=== PATIENT | female | born 1985 | race Caucasian/White ===

== ENCOUNTER → 2016-06-30 | Outpatient (CLI) | payer MEDICAID ==
[~2016-06-30] MED LIST: ALPR1T PO; ALPR1TAB2 PO; AMOX500C2 PO; ARIP2TAB10 PO; BENZ100C8 PO; CELEXA; CITA40TA19 PO; CLOMID; DIAZ-345 PO; DIAZ5TAB3 PO; FLUO20CA42; HYDR-2890 PO; HYDR-3720 PO; IBP800T PO; LORA-794 PO; NAPR-243 PO; NAPR550T PO; NF-AMPE5T PO; OLN2.5T PO; PRD20T PO; PREN-142 PO; SERT25TA PO
--- NOTE | 2016-06-30 14:41 | Diagnostic Imaging Report ---
EXAMINATION: OB ultrasound. INDICATION: Followup survey. The previous study on 05/28/2016 was limited in evaluation of the spine and cord insertion. FINDINGS: The heart rate is 142 BPM. The placenta is anterior with no placenta previa. The spine and cord insertion were evaluated and appear within normal limits. The growth parameters at this time are all around 23 weeks and 2 days and concordant with the gestational age. IMPRESSION: Completed survey. Dictated by: Dictated on workstation # [id number]
== END ==
LOC: RAD 09:41
PROVIDERS: ATTEND Family Medicine
DX: Z34.92 Encounter for supervision of normal pregnancy, unspecified, second trimester (principal); Z36 Encounter for antenatal screening of mother; Z3A.23 23 weeks gestation of pregnancy
CPT/HCPCS: 76816

== ENCOUNTER 2016-10-18 19:00 | Inpatient (IN) | payer MEDICAID ==
[~2016-10-18] VITALS: Ht 152.4 cm; Wt 69.9 kg
[~2016-10-18 19:00] MED LIST changes: -PREN-142 PO
--- NOTE | 2016-10-18 19:26 | History & Physical-OB ---
OB - Chief Complaint & HPI Date Date of Admission: Date of Admission: October 18, 2016 at 19:00 Chief Complaint/History OB-Reason for Admission/Chief: Induction of Labor Hx : 1 Hx Para: 0 Expected Date of Delivery: October 24, 2016 Gestational Age in Weeks: 39 Admission Nurse Assessment Rev: Yes History of Labs GBS negative Allergies and Home Medications Allergies Coded Allergies: No Known Drug Allergies (Unverified , 06/05/09) Home Medications Amphetamine Aspartate/Sulfate 5 Mg Tab, Unknown Dose PO, (Reported) Diazepam 5 Mg Tablet, Unknown Dose PO BID PRN for ANXIETY, (Reported) Diazepam 5 Mg Tablet, 1 EACH PO TID PRN, #15 FOR MUSCLE SPASMS OR ANXIETY Prescribed by: KEVIN FRISA on 11/24/14 0118 OB - History Hx of Present Care: Yes Ultrasounds: Normal mid trimester US Obstetrical Complications: None Medical Complications: None Delivery History Hx Blood Disorders: No Adverse Rxn to Tranfusion: No Patient Past Medical History no chronic medical problems Social History/Family History HIV/AIDS: No Sexually Transmitted Disease: No Immunizations Hepatitis A: Yes Hepatitis B: Yes Tetanus Booster (TDap): Less than 5yrs Date of Influenza Vaccine: Mar 20, 2014 OB - Admission Exam Physical Exam HEENT: Moist Membranes Heart: Rhythm Normal Lungs: Clear Abdomen: Gravid Cervical Dilatation: 1cm Effacement: 50% Station: -3 Membranes: Intact Heart Rate: 140's Accelerations: Accelerations Present Custodial Variability: Average (6-25) OB - Assessment/Plan/Diagnosis Assessment Assessment: induction of labor (at 39weeks gestation) Plan Induction Method: other (cervidil) MANOLO BANDA MD October 18, 2016 19:26
[2016-10-18 19:27] VITALS: BP 117/66
[2016-10-18] MEDS ORDERED: ZOLPIDEM 5 MG (AMBIEN) TAB PO PRN (19:45)
[2016-10-18] MEDS ORDERED: DINOPROSTONE 10 MG (CERVIDIL) INSERT PV ONE (19:45)
[2016-10-18] MEDS: D5 LR IV SOLUTION 1,000 ML IV SCH (20:02)
[2016-10-18 20:03] VITALS: BP 109/68
[2016-10-18 20:25] LABS: BASOPHILS % (AUTO) 0 % (0-10); EOSINOPHILS # (AUTO) 0.2 10^3/uL (0.0-0.3); EOSINOPHILS % (AUTO) 1 % (0-10); LYMPHOCYTES # (AUTO) 2.2 X 10^3 (1.0-4.0); LYMPHOCYTES % (AUTO) 17 % (12-44); MEAN CORPUSCULAR HEMOGLOBIN 31 PG (25-34); MEAN CORPUSCULAR HGB CONC 34 G/DL (32-36); MEAN CORPUSCULAR VOLUME 92 FL (80-99); MEAN PLATELET VOLUME 10.8 FL (7.4-10.4); MONOCYTES # (AUTO) 0.7 X 10^3 (0.0-1.0); MONOCYTES % (AUTO) 5 % (0-12); NEUTROPHILS % (AUTO) 76 % (42-75); PLATELET COUNT 309 10^3/uL (130-400); RED BLOOD COUNT 3.91 10^6/uL (4.35-5.85); RED CELL DISTRIBUTION WIDTH 13.1 % (10.0-14.5); WHITE BLOOD COUNT 13.1 10^3/uL (4.3-11.0)
[2016-10-18 21:06] VITALS: BP 110/59
[2016-10-18] MEDS ORDERED: PREN-142 PO (21:25)
[2016-10-18] MEDS: CATHETER FLUSH 10 ML SYR IV SCH (21:55)
[2016-10-19] VITALS (61 sets, daily range): BP systolic 78–144; BP diastolic 48–90
[2016-10-19] MEDS: D5 LR IV SOLUTION 1,000 ML IV SCH ×2 (03:12→11:16)
[2016-10-19] MEDS: CATHETER FLUSH 10 ML SYR IV SCH (06:30)
--- NOTE | 2016-10-19 07:12 | Progress Note (SOAP) ---
Subjective Subjective/Events-last exam Slept some overnight. Occasional contraction. Objective Exam Vital Signs Date Time Temp Pulse Resp B/P (MAP) Pulse Ox O2 Delivery O2 Flow Rate FiO2 10/19/16 03:10 97.3 74 18 122/63 Room Air 10/18/16 21:06 97.7 82 18 110/59 Room Air 10/18/16 20:03 86 18 109/68 Room Air 10/18/16 19:27 98.0 86 18 117/66 Room Air I & O 10/19/16 07:00 Intake Total 1500 ml Balance 1500 ml Capillary Refill : Other comments Cervix at 06/21, 70% effaced and -2 station. contractions noted on monitor 5- 10 minutes apart Results Lab Laboratory Tests 10/18/16 19:40: White Blood Count 13.1H, Red Blood Count 3.91L, Hemoglobin 12.2, Hematocrit 36, Mean Corpuscular Volume 92, Mean Corpuscular Hemoglobin 31, Mean Corpuscular Hemoglobin Concent 34, Red Cell Distribution Width 13.1, Platelet Count 309, Mean Platelet Volume 10.8H, Neutrophils (%) (Auto) 76H, Lymphocytes (%) (Auto) 17, Monocytes (%) (Auto) 5, Eosinophils (%) (Auto) 1, Basophils (%) (Auto) 0, Neutrophils # (Auto) 10.0H, Lymphocytes # (Auto) 2.2, Monocytes # (Auto) 0.7, Eosinophils # (Auto) 0.2, Basophils # (Auto) 0.0 Assessment/Plan Assessment/Plan Assess & Plan/Chief Complaint 1. IUP at 39w1d -AROM performed at 0655 -planning on epidural. Clinical Quality Measures DVT/VTE Risk/Contraindication: Risk Factor Score Per Nursin RFS Level Per Nursing on Admit: 2=Moderate MANOLO BANDA MD October 19, 2016 07:12
[2016-10-19] MEDS ORDERED: OXYTOCIN/NORMAL SALINE 500 ML IV SCH ×2 (07:13→18:59)
[2016-10-19] MEDS ORDERED: OXYTOCIN/NORMAL SALINE 500 ML IV ONE (07:27)
[2016-10-19] MEDS ORDERED: LACTATED RINGERS 1,000 ML IV ONE ×2 (08:02→09:05)
[2016-10-19] MEDS ORDERED: SUFENTA 0.6MCG/ML BUPIVA 0.125 100 ML ONE (08:02)
[2016-10-19] MEDS ORDERED: BUPIVACAINE 0.25% 30 ML (SENSORCAINE) VIAL ONE (08:44)
[2016-10-19] MEDS ORDERED: BUPIVACAINE 0.25% 30 ML (SENSORCAINE) VIAL INJ ONE (09:15)
[2016-10-19] MEDS ORDERED: EPIDURAL (SUFENTA 0.6MCG/ML BUPIVA 0.125%) 100 ML BAG EPI SCH (09:15)
[2016-10-19] MEDS ORDERED: NALOXONE 0.4 MG/ML 1 ML (NARCAN) VIAL IV PRN (09:15)
[2016-10-19] MEDS ORDERED: ONDANSETRON 4 MG/2 ML (SDV) Z0FRAN IV PRN (09:15)
[2016-10-19] MEDS ORDERED: MEPIVACAINE (CARBOCAINE) 2% 50 ML VIAL ONE (18:18)
--- NOTE | 2016-10-19 18:59 | OB Labor & Delivery Record ---
L&D History Date of Service Date of Service: October 19, 2016 History Expected Date of Delivery: October 25, 2016 Gestational Age in Weeks: 39 Hx : 1 Hx Para: 0 Complications Events: Routine care Operative Indications (Cesarea: N/A-Vaginal Delivery Intrapartal Events: None L&D Stage1 Stage One Onset of Labor - Date: October 19, 2016 Onset of Labor - Time: 07:00 Monitors and Tracing Monitor Mode: Internal Heart Rate: 130 Monitor Accelerations: Uniform Monitor Decelerations: Early Station: +1 Mcfp Variability: Average (6-10) Short Term Variability: Present Presentation: Vertex Vital Signs VS - Last 72 Hours, by Label 10/18/16 10/18/16 10/18/16 10/19/16 19:27 20:03 21:06 03:10 Temp 98.0 97.7 97.3 Pulse 86 86 82 74 Resp 18 18 18 18 B/P (MAP) 117/66 109/68 110/59 122/63 O2 Delivery Room Air Room Air Room Air Room Air 10/19/16 10/19/16 10/19/16 10/19/16 07:30 07:35 07:50 08:05 Temp 97.3 Pulse 73 72 72 76 Resp 18 18 18 18 B/P (MAP) 109/57 101/62 104/60 106/68 O2 Delivery Room Air Room Air Room Air Room Air 10/19/16 10/19/16 10/19/16 10/19/16 08:20 08:35 08:50 08:55 Pulse 73 73 88 87 Resp 18 18 18 18 B/P (MAP) 111/67 111/67 138/59 114/61 Pulse Ox 100 O2 Delivery Room Air Room Air Room Air Room Air 10/19/16 10/19/16 10/19/16 10/19/16 09:00 09:05 09:10 09:20 Pulse 87 73 76 80 Resp 18 18 18 18 B/P (MAP) 115/68 107/71 106/61 104/63 Pulse Ox 100 100 100 99 O2 Delivery Room Air Room Air Room Air Room Air 10/19/16 10/19/16 10/19/16 10/19/16 09:35 09:50 10:05 10:20 Pulse 95 89 89 84 Resp 18 18 18 18 B/P (MAP) 102/71 107/59 107/59 103/57 Pulse Ox 100 99 99 100 O2 Delivery Room Air Room Air Room Air Room Air 10/19/16 10/19/16 10/19/16 10/19/16 10:35 10:50 11:05 11:20 Temp 96.0 Pulse 83 76 76 76 Resp 18 18 18 18 B/P (MAP) 98/53 98/53 98/53 Pulse Ox 100 100 100 100 O2 Delivery Room Air Room Air Room Air Room Air 10/19/16 10/19/16 10/19/16 10/19/16 11:35 11:50 12:05 12:20 Pulse 75 79 77 75 Resp 18 18 18 18 B/P (MAP) 97/55 98/55 98/55 103/55 Pulse Ox 98 100 99 100 O2 Delivery Room Air Room Air Room Air Room Air 10/19/16 10/19/16 10/19/16 10/19/16 12:35 12:50 13:05 13:20 Pulse 75 74 65 79 Resp 18 18 18 18 B/P (MAP) 101/58 97/54 97/54 93/48 Pulse Ox 99 98 98 98 O2 Delivery Room Air Room Air Room Air Room Air 10/19/16 10/19/16 10/19/16 10/19/16 13:35 13:50 14:05 14:20 Temp 97.3 Pulse 84 83 77 83 Resp 18 18 18 18 B/P (MAP) 105/57 105/54 100/58 101/65 Pulse Ox 99 100 99 100 O2 Delivery Room Air Room Air Room Air Room Air 10/19/16 10/19/16 10/19/16 10/19/16 14:35 14:50 15:05 15:20 Pulse 84 73 86 80 Resp 18 18 18 18 B/P (MAP) 144/56 105/55 102/54 106/63 Pulse Ox 100 100 100 100 O2 Delivery Room Air Room Air Room Air Room Air 10/19/16 10/19/16 15:35 15:50 Pulse 86 94 Resp 18 18 B/P (MAP) 105/58 101/62 Pulse Ox 99 100 O2 Delivery Room Air Room Air Signs of Distress by FHT Signs of Distress none Rupture of Membranes Spontaneous Ruture of Membrane: No Amniotic Membrane Rupture Time: 0656 Amniotic Membrane Fluid Desc.: Clear Induction/Anesthesia Epidural Cath Placement - Time: 0854 L&D Stage2 Stage Two Stage II Date: October 19, 2016 Stage II Time: 18:31 Monitors and Tracing Monitor Mode: Internal Heart Rate: 130 Monitor Accelerations: Uniform Monitor Decelerations: None 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 (6-10) Short Term Variability: Present Position: Left Occiput Anterior Presentation: Vertex Signs of Distress by FHT Signs of Distress poor inspiratory effort Cord Descript/Complications Cord Vessel Description: 3 Vessels Delivery Type Delivery Method: Low Vacuum Extraction Anterior Shoulder: Left Episiotomy/Perineal Laceration Laceraction(s)/Extensions: Yes Episiotomy Description: Midline Sutures Used: Vicryl Condition of Delivery 1 minute Comment: 1 5 minute Comment: 4 Notes 8 at 10 min Condition of Condition of Infant: Living Exam: No Observed Abnormalities Resuscitation Resuscitation: Bag and Mask Resuscitation Comments: CPAP required L&D Stage3 Stage Three Stage III Date: October 19, 2016 Stage III Time: 18:37 Pictocin Pitocin Administration mu/min: 20 Pitocin ml/hr: 20 Pitocin Administration Comment: pitocin increased per protocol Placenta Delivery Placenta Delivery: Spontaneous Delivery Summary Summary Vaginal blood loss >500ml: No 400cc Condition of Delivery Examined: Cervix Examined Post Hemorrhage: No MANOLO BANDA MD October 19, 2016 18:59
[2016-10-19] MEDS ORDERED: MEASLES,MUMPS,RUBELLA 1 EA INJ SQ ONE (19:00)
[2016-10-19] MEDS ORDERED: HYDROcodone/APAP 5 MG/325 MG (LORTAB) TAB PO PRN (19:00)
[2016-10-19] MEDS ORDERED: BENZOCAINE/MENTHOL (DERMOPLAST) 56 ML CAN TP PRN (19:00)
[2016-10-19] MEDS ORDERED: TETANUS,DIPTH,PERTUSS P/F (BOOSTRIX) 0.5 ML VIAL IM ONE (19:00)
[2016-10-19] MEDS ORDERED: WITCH HAZEL(TUCKS) 40 EA JAR TOP PRN (19:00)
[2016-10-19] MEDS ORDERED: METHYLERGONOVINE 0.2 MG/ML (METHERGINE) AMP ONE (19:35)
[2016-10-19] MEDS ORDERED: METHYLERGONOVINE 0.2 MG/ML (METHERGINE) AMP IM NR (19:45)
[2016-10-19] MEDS: ACETAMINOPHEN 500 MG TAB (TYLENOL) PO PRN (20:04)
[2016-10-19 20:20] LABS: BASOPHILS % (AUTO) 0 % (0-10); EOSINOPHILS # (AUTO) 0.2 10^3/uL (0.0-0.3); EOSINOPHILS % (AUTO) 2 % (0-10); LYMPHOCYTES # (AUTO) 1.8 X 10^3 (1.0-4.0); LYMPHOCYTES % (AUTO) 13 % (12-44); MEAN CORPUSCULAR HEMOGLOBIN 36 PG (25-34); MEAN CORPUSCULAR HGB CONC 37 G/DL (32-36); MEAN CORPUSCULAR VOLUME 95 FL (80-99); MEAN PLATELET VOLUME 11.3 FL (7.4-10.4); MONOCYTES # (AUTO) 0.8 X 10^3 (0.0-1.0); MONOCYTES % (AUTO) 6 % (0-12); NEUTROPHILS # (AUTO) 11.1 X 10^3 (1.8-7.8); NEUTROPHILS % (AUTO) 80 % (42-75); PLATELET COUNT 94 10^3/uL (130-400); RED BLOOD COUNT 3.89 10^6/uL (4.35-5.85); RED CELL DISTRIBUTION WIDTH 15.7 % (10.0-14.5); WHITE BLOOD COUNT 13.8 10^3/uL (4.3-11.0)
[2016-10-19] MEDS: IBUPROFEN 600 MG (MOTRIN) TAB PO SCH (21:30)
[2016-10-19] MEDS ORDERED: CATHETER FLUSH 10 ML SYR IV SCH (22:00)
[2016-10-20] VITALS (8 sets, daily range): BP systolic 93–107; BP diastolic 53–68
[2016-10-20] MEDS: METHYLERGONOVINE 0.2 MG (MEHTERGINE) TAB PO SCH ×4 (01:32→21:52)
[2016-10-20] MEDS: IBUPROFEN 600 MG (MOTRIN) TAB PO SCH ×4 (04:49→21:52)
[2016-10-20 06:44] LABS: BASOPHILS % (AUTO) 0 % (0-10); EOSINOPHILS # (AUTO) 0.1 10^3/uL (0.0-0.3); EOSINOPHILS % (AUTO) 1 % (0-10); LYMPHOCYTES # (AUTO) 2.1 X 10^3 (1.0-4.0); LYMPHOCYTES % (AUTO) 10 % (12-44); MEAN CORPUSCULAR HEMOGLOBIN 32 PG (25-34); MEAN CORPUSCULAR HGB CONC 35 G/DL (32-36); MEAN CORPUSCULAR VOLUME 91 FL (80-99); MEAN PLATELET VOLUME 10.1 FL (7.4-10.4); MONOCYTES # (AUTO) 1.4 X 10^3 (0.0-1.0); MONOCYTES % (AUTO) 7 % (0-12); NEUTROPHILS # (AUTO) 17.4 X 10^3 (1.8-7.8); NEUTROPHILS % (AUTO) 83 % (42-75); PLATELET COUNT 207 10^3/uL (130-400); RED BLOOD COUNT 3.26 10^6/uL (4.35-5.85); RED CELL DISTRIBUTION WIDTH 12.8 % (10.0-14.5)
--- NOTE | 2016-10-20 07:40 | Progress Note (SOAP) ---
Subjective Subjective/Events-last exam patient feels much better today. There is minimal lightheadedness. She reports no significant vaginal bleeding. Objective Exam Vital Signs Date Time Temp Pulse Resp B/P (MAP) Pulse Ox O2 Delivery O2 Flow Rate FiO2 10/20/16 04:38 96.4 85 16 105/65 100 Room Air 10/20/16 01:32 97.1 97 16 107/57 96 Room Air 10/20/16 00:30 97.3 96 16 101/68 99 Room Air 10/19/16 23:30 98.7 94 16 103/65 98 Room Air 10/19/16 21:30 99.7 102/70 Room Air 10/19/16 20:45 100.5 94 18 105/65 97 Room Air 10/19/16 20:45 100.5 10/19/16 20:30 100.7 107 20 103/62 Room Air 10/19/16 20:16 99 18 102/56 Room Air 10/19/16 20:04 100.9 10/19/16 20:01 100.9 116 20 111/60 Room Air 10/19/16 19:54 99 18 104/51 Room Air 10/19/16 19:46 102.4 102 20 86/54 Room Air 10/19/16 19:33 94 18 78/51 Room Air 10/19/16 19:31 114 18 88/50 Room Air 10/19/16 19:24 109 18 100/50 Room Air 10/19/16 19:16 102.5 139 20 120/55 Room Air 10/19/16 19:05 103.1 10/19/16 19:00 134 116/56 Room Air 10/19/16 18:51 103.1 10/19/16 18:20 146 18 116/67 Room Air 10/19/16 18:05 18 141/90 Room Air 10/19/16 17:50 123 18 122/57 Room Air 10/19/16 17:43 100.1 10/19/16 17:35 118 18 126/71 Room Air 10/19/16 17:20 105 18 122/87 Room Air 10/19/16 17:05 113 18 117/73 99 Room Air 10/19/16 16:50 102 18 110/68 100 Room Air 10/19/16 16:35 92 18 118/58 98 Room Air 5/2/17 16:20 92 18 107/56 100 Room Air 5/2/17 16:05 87 18 115/64 99 Room Air 5/2/17 15:50 94 18 101/62 100 Room Air 5/2/17 15:35 86 18 105/58 99 Room Air 5/2/17 15:20 80 18 106/63 100 Room Air 5/2/17 15:05 86 18 102/54 100 Room Air 5/2/17 14:50 73 18 105/55 100 Room Air 5/2/17 14:35 84 18 144/56 100 Room Air 5/2/17 14:20 83 18 101/65 100 Room Air 5/2/17 14:05 97.3 77 18 100/58 99 Room Air 5/2/17 13:50 83 18 105/54 100 Room Air 5/2/17 13:35 84 18 105/57 99 Room Air 5/2/17 13:20 79 18 93/48 98 Room Air 5/2/17 13:05 65 18 97/54 98 Room Air 5/2/17 12:50 74 18 97/54 98 Room Air 5/2/17 12:35 75 18 101/58 99 Room Air 5/2/17 12:20 75 18 103/55 100 Room Air 5/2/17 12:05 77 18 98/55 99 Room Air 5/2/17 11:50 79 18 98/55 100 Room Air 5/2/17 11:35 75 18 97/55 98 Room Air 5/2/17 11:20 76 18 98/53 100 Room Air 5/2/17 11:05 96.0 76 18 98/53 100 Room Air 5/2/17 10:50 76 18 98/53 100 Room Air 5/2/17 10:35 83 18 100 Room Air 5/2/17 10:20 84 18 103/57 100 Room Air 5/2/17 10:05 89 18 107/59 99 Room Air 5/2/17 09:50 89 18 107/59 99 Room Air 5/2/17 09:35 95 18 102/71 100 Room Air 5/2/17 09:20 80 18 104/63 99 Room Air 5/2/17 09:10 76 18 106/61 100 Room Air 5/2/17 09:05 73 18 107/71 100 Room Air 5/2/17 09:00 87 18 115/68 100 Room Air 10/19/16 08:55 87 18 114/61 Room Air 10/19/16 08:50 88 18 138/59 100 Room Air 10/19/16 08:35 73 18 111/67 Room Air 10/19/16 08:20 73 18 111/67 Room Air 10/19/16 08:05 76 18 106/68 Room Air 10/19/16 07:50 72 18 104/60 Room Air I & O 10/20/16 07:00 Intake Total 2500 ml Balance 2500 ml Capillary Refill : General Appearance: No Apparent Distress Respiratory: Lungs Clear Cardiovascular: Regular Rate, Rhythm Gastrointestinal: soft (with uterus firm) Results Lab Laboratory Tests 10/19/16 19:40: White Blood Count 13.8H, Red Blood Count 3.89L, Hemoglobin 13.8, Hematocrit 37, Mean Corpuscular Volume 95, Mean Corpuscular Hemoglobin 36H, Mean Corpuscular Hemoglobin Concent 37H, Red Cell Distribution Width 15.7H, Platelet Count 94L, Mean Platelet Volume 11.3H, Neutrophils (%) (Auto) 80H, Lymphocytes (%) (Auto) 13, Monocytes (%) (Auto) 6, Eosinophils (%) (Auto) 2, Basophils (%) (Auto) 0, Neutrophils # (Auto) 11.1H, Lymphocytes # (Auto) 1.8, Monocytes # (Auto) 0.8, Eosinophils # (Auto) 0.2, Basophils # (Auto) 0.0 10/20/16 06:36: White Blood Count 21.0H, Red Blood Count 3.26L, Hemoglobin 10.3#L, Hematocrit 30L, Mean Corpuscular Volume 91, Mean Corpuscular Hemoglobin 32, Mean Corpuscular Hemoglobin Concent 35, Red Cell Distribution Width 12.8, Platelet Count 207, Mean Platelet Volume 10.1, Neutrophils (%) (Auto) 83H, Lymphocytes (% ) (Auto) 10L, Monocytes (%) (Auto) 7, Eosinophils (%) (Auto) 1, Basophils (%) ( Auto) 0, Neutrophils # (Auto) 17.4H, Lymphocytes # (Auto) 2.1, Monocytes # (Auto ) 1.4H, Eosinophils # (Auto) 0.1, Basophils # (Auto) 0.0 Assessment/Plan Assessment/Plan Assess & Plan/Chief Complaint 1. Status post spontaneous vaginal delivery with suction assistance at 39 weeks gestation -Continue today with routine care orders. -Dismissal in the morning of October 21, 2016. Clinical Quality Measures DVT/VTE Risk/Contraindication: Risk Factor Score Per Nursin RFS Level Per Nursing on Admit: 2=Moderate MANOLO BANDA MD October 20, 2016 07:40
[2016-10-20] MEDS ORDERED: TETANUS,DIPTH,PERTUSS P/F (BOOSTRIX) 0.5 ML VIAL IM ONE (08:00)
[2016-10-20] MEDS: ACETAMINOPHEN 500 MG TAB (TYLENOL) PO PRN (08:07)
[2016-10-20] MEDS: PRENATAL VITAMIN 1 EA TAB PO SCH (08:07)
[2016-10-20] MEDS: FERROUS SULF 325 MG (IRON) TAB PO SCH (08:08)
--- NOTE | 2016-10-20 14:58 | Anesthesia-Regional Post-Op ---
Regional Patient Condition Mental Status: Alert, Oriented x3 Circulation: Same as Pre-Op Headache: Absent Sensation: Full Recovery Motor Block: Absent Post Op Complications Complications None Follow Up Care/Instructions Patient Instructions None needed. Anesthesia/Patient Condition Patient is doing well, no complaints, stable vital signs, no apparent adverse anesthesia problems. No complications reported per nursing. [place] [facility] No FRANCISCO JAVIER CONTRERAS CRNA October 20, 2016 14:58
[2016-10-20] MEDS ORDERED: METHYLERGONOVINE 0.2 MG (MEHTERGINE) TAB PO ONE (21:42)
[2016-10-21 04:40] VITALS: BP 84/55
[2016-10-21] MEDS: IBUPROFEN 600 MG (MOTRIN) TAB PO SCH ×2 (04:40→10:18)
--- NOTE | 2016-10-21 07:42 | Discharge Summary ---
Diagnosis/Chief Complaint Date of Admission October 18, 2016 at 19:00 Date of Discharge October 21, 2016 Discharge Date: October 21, 2016 Admission Diagnosis Admission Diagnosis 1. Intrauterine at term 39 weeks Discharge Diagnosis 1. Intrauterine at term 39 weeks Reason Hospital Visit 31-year-old 1 now term 1 female who initially presented during the evening of October 18, 2016 for induction of labor. Patient was noted to be at 39 weeks 2 days gestation upon presentation. Patient had occasional contraction but no pattern. care was essentially uneventful. Her GBS status at 36 weeks was negative. Discharge Summary-OBS Procedures 1. Epidural per anesthesia 2. Suction-assisted vertex vaginal delivery 3. Repair of midline episiotomy Discharge Physical Examination Allergies: Coded Allergies: No Known Drug Allergies (Unverified , 06/05/09) Vitals & I&Os Vital Signs Date Time Temp Pulse Resp B/P (MAP) Pulse Ox O2 Delivery O2 Flow Rate FiO2 10/21/16 04:40 96.0 65 16 84/55 97 Room Air General Appearance: No Acute Distress HEENT: EOMI Respiratory: Clear to Auscultation Cardiovascular: Regular Rate Abdominal: Soft (with uterus firm) Hospital Course upon admission on October 18, 2016 patient underwent Cervidil cervical ripening. 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 She ultimately underwent amniotomy with placement of scalp electrode with clear fluid noted. Patient received epidural in labor and also Pitocin augmentation. Once the completion she was allowed to push and ultimately delivered a term viable female with Apgars of 1 at 1 minute for at 5 minutes and 8 at 10 minutes. responded well to CPAP. Mother was noted to have a midline episiotomy which was repaired with 3-0 Vicryl. Estimated blood loss was 400 mL. Her hemoglobin prior to delivery was noted to be 12.2. Following delivery patient had underwent routine care orders. She was noted to have one dizzy spell during the immediate time after delivery. Patient responded well to resting and ultimately this resolved. Her hemoglobin on October 20, 2016 was noted to be 10.3. Patient remained asymptomatic and was noted to have no further problems during the remainder of the hospital stay. She was noted to have no leg pain or chest pain. She had tolerated regular diet. She was felt ready for dismissal in the morning of October 21, 2016. Discharge Instructions to patient/family Please see electonic discharge instructions given to patient. Discharge Medications Reviewed and agree with Discharge Medication list on patient's Discharge Instruction sheet Clinical Quality Measures DVT/VTE Risk/Contraindication: Risk Factor Score Per Nursin RFS Level Per Nursing on Admit: 2=Moderate MANOLO BANDA MD October 21, 2016 07:42
--- NOTE | 2016-10-21 07:44 | Discharge Inst-Women's Service ---
Discharge Inst-Women's Serv Depart Medication/Instructions Instructions May utilize Tylenol or ibuprofen for discomfort. The Tylenol would be extra strength every 4 hours as needed and ibuprofen 600 mg every 6 hours as needed for cramping. Consults/Follow Up Additional Follow Up: Yes (with Dr. Banda in 6 weeks.) Activity Activity: Activity as Tolerated Driving Instructions: You May Drive Nothing Inside Vagina: No [place] (for 6 weeks) Diet Discharge Diet: No Restrictions Return to The Hospital For: as below Symptoms to Report to : Bleeding Excessive, Pain Increased, Fever Over 101 Degrees F, Vaginal Discharge Foul For Any Problems or Questions: Contact Your Physician MANOLO BANDA MD October 21, 2016 07:44
[2016-10-21 08:50] VITALS: BP 94/57
[2016-10-21] MEDS: PRENATAL VITAMIN 1 EA TAB PO SCH (08:51)
[2016-10-21] MEDS: FERROUS SULF 325 MG (IRON) TAB PO SCH (08:51)
[2016-10-21] MEDS ORDERED: TETANUS,DIPTH,PERTUSS P/F (BOOSTRIX) 0.5 ML VIAL IM ONE (09:47)
== END 2016-10-21 10:55 | disposition home or self-care (01) | DRG 775 ==
LOC: LDRP 19:00
PROVIDERS: ADMIT Family Medicine; ATTEND Family Medicine
PROC: 3E0P7GC Introduction of Other Therapeutic Substance into Female Reproductive, Via Natural or Artificial Opening (ICD-10-PCS; 2016-10-18)
PROC: 10D07Z6 Extraction of Products of Conception, Vacuum, Via Natural or Artificial Opening (ICD-10-PCS; principal; 2016-10-19)
PROC: 0W8NXZZ Division of Female Perineum, External Approach (ICD-10-PCS; 2016-10-19)
DX: O77.9 Labor and delivery complicated by fetal stress, unspecified (principal); Z37.0 Single live birth; Z3A.39 39 weeks gestation of pregnancy; Z23 Encounter for immunization
CPT/HCPCS: 36415; 85025; 86850; 86900; 86901; 90715

== ENCOUNTER → 2017-09-21 | Outpatient (CLI) | payer MEDICAID ==
[~2017-09-21] MED LIST changes: +PREN-142 PO
--- NOTE | 2017-09-21 19:25 | Diagnostic Imaging Report ---
PROCEDURE: US PELVIC (NON OB) TECHNIQUE: Multiple real-time grayscale images were obtained over the pelvis in various projections transabdominally. INDICATION: Pelvic pain. FINDINGS: The previous pelvic ultrasound exam performed on 07/10/2014 noted prominent ovarian follicles and a mildly complicated left ovarian cyst measuring 2.5 x 2.5 x 2.8 cm. On this exam, both ovaries were identified. The cyst arising from the left ovary seen previously is no longer visualized. There are a few subcentimeter follicles associated with each ovary. There is good blood flow to each ovary, and there is no sign of torsion. The uterus is nongravid and not enlarged measuring 7.9 x 4.3 x 3.4 cm. There is no focal mass involving the uterus to suggest a fibroid. The endometrial lining is slightly thickened measuring 8 mm (normal 5 mm or less). This finding is nonspecific. Correlation with the patient's menstrual cycle would be recommended. There is no pelvic mass or free fluid collection noted. IMPRESSION: The cyst associated with the left ovary seen previously has resolved. There is no acute pelvic abnormality identified at this time. Dictated by: Dictated on workstation # [id number]
== END ==
LOC: RAD 13:36
PROVIDERS: ATTEND Family Medicine
DX: R10.2 Pelvic and perineal pain (principal)
CPT/HCPCS: 76856

== ENCOUNTER 2018-03-31 13:59 | Emergency (ER) | payer BC, MEDICAID ==
[~2018-03-31] VITALS: Ht 152.4 cm; Wt 51.7 kg
--- NOTE | 2018-03-31 17:20 | Diagnostic Imaging Report ---
EXAMINATION: Obstetrical sonography. INDICATION: Cramping and spotting. FINDINGS: There appears to be a decidual reaction about an apparent gestational sac. No pole is evident. There is a yolk sac present. The gestational sac has a slightly flattened appearance. Based on the mean sac diameter, the estimated gestational age would be 6 weeks 0 days. Left adnexa unremarkable. The right ovary demonstrates an apparent corpus luteal cyst. There is appropriate right ovarian Doppler flow. There is no free fluid within the pelvis IMPRESSION: 1. There is an apparent gestational sac within the endometrial canal. This gestational sac does contain a yolk sac but a pole is not evident. Differential considerations would include missed spontaneous or early intrauterine gestation. Consider ongoing correlation with beta hCGs and repeat sonographic imaging, as clinically indicated. 2. Right ovarian cyst appears simple. The right ovary demonstrates appropriate Doppler flow. 3. The left adnexa is unremarkable but the left ovary was not visualized. 4. No free fluid evident within the pelvis. Dictated by: Dictated on workstation # [id number]
--- NOTE | 2018-03-31 17:33 | ED GU-Female ---
General Chief Complaint: -Female Stated Complaint: AROUND 7 WKS;CRAMPS;SPOTTING Nursing Triage Note: PT TO TRIAGE. A&OX4. REPORTS PT IS 7-8WK PREG. REPORTS ABD CRAMPING WITH SPOTTING NOTED EARLY THIS AM. REPORTS PRESSURE AND THE URGE TO PUSH. DESCRIBES PAIN STABBING. NAUSEA/VOMITING. Nursing Sepsis Screen: No Definite Risk Source: patient Exam Limitations: no limitations History of Present Illness Date Seen by Provider: Mar 31, 2018 Time Seen by Provider: 17:31 Initial Comments To ER with reports of suprapubic abdominal cramping and spotting. estimates herself about 7-8 weeks gestation. No troubles with the first . Timing/Duration: just prior to arrival Severity/Quality: moderate Associated Symptoms: dysuria; No lower back pain, No urinary frequency Allergies and Home Medications Allergies Coded Allergies: No Known Drug Allergies (Unverified , 06/05/09) Home Medications Vit No.124/Iron/FA 1 Each Tablet, 1 EACH PO DAILY, (Reported) Patient Home Medication List Home Medication List Reviewed: Yes Review of Systems Review of Systems Constitutional: see HPI EENTM: see HPI Respiratory: no symptoms reported Cardiovascular: no symptoms reported Genitourinary: see HPI, frequency Musculoskeletal: see HPI Skin: no symptoms reported Psychiatric/Neurological: No Symptoms Reported Endocrine: No Symptoms Reported Hematologic/Lymphatic: No Symptoms Reported (is) Past Iqdzkfd-Zkyorg-Zwcvda Hx Patient Social History Alcohol Use: Denies Use Recreational Drug Use: No Smoking Status: Current Everyday Smoker Type Used: Cigarettes 2nd Hand Smoke Exposure: Yes Recent Foreign Travel: No Contact w/Someone Who Travel: No Recent Infectious Disease Expo: No Recent Hopitalizations: No Immunizations Up To Date Tetanus Booster (TDap): Less than 5yrs Date of Influenza Vaccine: Mar 20, 2014 Seasonal Allergies Seasonal Allergies: No Past Medical History Surgeries: Yes (OVARIAN CYSTS, ENODMETRIOSIS) Abdominal, Orthopedic Respiratory: No Cardiac: Yes Syncope Neurological: No : Yes (7-8WKS) Reproductive Disorders: Yes Female Reproductive Disorders: Endometriosis, Ovarian Cyst Sexually Transmitted Disease: No HIV/AIDS: No Gastrointestinal: No Musculoskeletal: No Endocrine: No HEENT: No Cancer: No Psychosocial: Yes ADD/ADHD, Anxiety, Bipolar, Depression Integumentary: No Blood Disorders: No Adverse Reaction/Blood Tranf: No Family Medical History Patient reports no known family medical history. Cancer Physical Exam Vital Signs Vital Signs - First Documented 03/31/18 15:59 Temp 97.9 Pulse 71 Resp 16 B/P (MAP) 101/58 (72) Pulse Ox 100 O2 Delivery Room Air Capillary Refill : Less Than 3 Seconds Height, Weight, BMI Height: 5'0" Weight: 114lbs. 0.0oz. 51.628235vr; 30.1 BMI Method:Stated General Appearance: WD/WN, no apparent distress HEENT: PERRL/EOMI, normal ENT inspection Neck: non-tender, full range of motion Respiratory: no respiratory distress, no accessory muscle use Gastrointestinal: normal bowel sounds, soft, tenderness Neurologic/Psychiatric: alert, normal mood/affect, oriented x 3 Skin: normal color, warm/dry Progress/Results/Core Measures Suspected Sepsis Recent Fever Within 48 Hours: No Infection Criteria Present: None New/Unexplained Altered Menta: No Sepsis Screen: No Definite Risk SIRS Temperature:97.9 Pulse: 71 Respiratory Rate: 16 Laboratory Tests 03/31/18 17:29: White Blood Count 7.9 Blood Pressure 101 /58 Mean: 72 Laboratory Tests 03/31/18 17:29: Platelet Count 300 Results/Orders Lab Results Laboratory Tests Test 03/31/18 17:29 Range/Units White Blood Count 7.9 4.3-11.0 10^3/uL Red Blood Count 3.93 L 4.35-5.85 10^6/uL Hemoglobin 12.6 11.5-16.0 G/DL Hematocrit 37 35-52 % Mean Corpuscular Volume 93 80-99 FL Mean Corpuscular Hemoglobin 32 25-34 PG Mean Corpuscular Hemoglobin Concent 34 32-36 G/DL Red Cell Distribution Width 12.1 10.0-14.5 % Platelet Count 300 130-400 10^3/uL Mean Platelet Volume 10.2 7.4-10.4 FL Neutrophils (%) (Auto) 53 42-75 % Lymphocytes (%) (Auto) 35 12-44 % Monocytes (%) (Auto) 6 0-12 % Eosinophils (%) (Auto) 5 0-10 % Basophils (%) (Auto) 0 0-10 % Neutrophils # (Auto) 4.2 1.8-7.8 X 10^3 Lymphocytes # (Auto) 2.8 1.0-4.0 X 10^3 Monocytes # (Auto) 0.5 0.0-1.0 X 10^3 Eosinophils # (Auto) 0.4 H 0.0-0.3 10^3/uL Basophils # (Auto) 0.0 0.0-0.1 10^3/uL My Orders Orders - JOSE VICTORIA APRN Us Ob<14 Wks Sngle W/Transvag (03/31/18 16:26) Cbc With Automated Diff (03/31/18 17:06) Abo Rh Type (03/31/18 17:06) Ua Culture If Indicated (03/31/18 17:43) Vital Signs/I&O 03/31/18 15:59 Temp 97.9 Pulse 71 Resp 16 B/P (MAP) 101/58 (72) Pulse Ox 100 O2 Delivery Room Air Capillary Refill : Less Than 3 Seconds Blood Pressure Mean: 72 Diagnostic Imaging Diagonstic Imaging: Ultrasound Comments NAME: ROSEMARY PABON [facility] REC#: [id number] PT STATUS: REG ER : 1985 PHYSICIAN: JOSE VICTORIA APRN ADMIT DATE: 03/31/18/ER Draft Date of Exam:03/31/18 US OB<14 WKS SNGLE W/TRANSVAG EXAMINATION: Obstetrical sonography. INDICATION: Cramping and spotting. FINDINGS: There appears to be a decidual reaction about an apparent gestational sac. No pole is evident. There is a yolk sac present. The gestational sac has a slightly flattened appearance. Based on the mean sac diameter, the estimated gestational age would be 6 weeks 0 days. Left adnexa unremarkable. The right ovary demonstrates an apparent corpus luteal cyst. There is appropriate right ovarian Doppler flow. There is no free fluid within the pelvis IMPRESSION: 1. There is an apparent gestational sac within the endometrial canal. This gestational sac does contain a yolk sac but a pole is not evident. Differential considerations would include missed spontaneous or early intrauterine gestation. Consider ongoing correlation with beta hCGs and repeat sonographic imaging, as clinically indicated. 2. Right ovarian cyst appears simple. The right ovary demonstrates appropriate Doppler flow. 3. The left adnexa is unremarkable but the left ovary was not visualized. 4. No free fluid evident within the pelvis. Dictated on workstation # [id number] Dict: 03/31/18 1713 Trans: 03/31/18 1720 [facility] [id number] Interpreted by: NORBERTO THAKUR MD Electronically signed by: Departure Impression Primary Impression: Threatened in early Disposition: HOME, SELF-CARE Condition: Stable Departure-Patient Inst. Decision time for Depature: 17:33 Referrals: MANOLO BANDA MD (PCP/Family) Primary Care Physician Patient Instructions: Threatened Miscarriage Add. Discharge Instructions: 1. Return to ER for any concerns 2. Follow up wit hour regular doctor next week All discharge instructions reviewed with patient and/or family. Voiced understanding. JOSE VICTORIA [employer] WORK[employer] Mar 31, 2018 17:33
[2018-03-31 17:43] LABS: BASOPHILS % (AUTO) 0 % (0-10); EOSINOPHILS # (AUTO) 0.4 10^3/uL (0.0-0.3); EOSINOPHILS % (AUTO) 5 % (0-10); HEMATOCRIT 37 % (35-52); HEMOGLOBIN 12.6 G/DL (11.5-16.0); LYMPHOCYTES # (AUTO) 2.8 X 10^3 (1.0-4.0); LYMPHOCYTES % (AUTO) 35 % (12-44); MEAN CORPUSCULAR HEMOGLOBIN 32 PG (25-34); MEAN CORPUSCULAR HGB CONC 34 G/DL (32-36); MEAN CORPUSCULAR VOLUME 93 FL (80-99); MEAN PLATELET VOLUME 10.2 FL (7.4-10.4); MONOCYTES # (AUTO) 0.5 X 10^3 (0.0-1.0); MONOCYTES % (AUTO) 6 % (0-12); NEUTROPHILS # (AUTO) 4.2 X 10^3 (1.8-7.8); NEUTROPHILS % (AUTO) 53 % (42-75); PLATELET COUNT 300 10^3/uL (130-400); RED BLOOD COUNT 3.93 10^6/uL (4.35-5.85); RED CELL DISTRIBUTION WIDTH 12.1 % (10.0-14.5); WHITE BLOOD COUNT 7.9 10^3/uL (4.3-11.0)
[2018-03-31 17:58] LABS: BILIRUBIN,URINE NEGATIVE (NEGATIVE); CLARITY,URINE CLEAR; COLOR,URINE YELLOW; GLUCOSE, URINE (UA) NEGATIVE (NEGATIVE); KETONES,URINE NEGATIVE (NEGATIVE); LEUKOCYTE ESTERASE ,URINE NEGATIVE (NEGATIVE); NITRITE,URINE NEGATIVE (NEGATIVE); PH,URINE 8 (5-9); PROTEIN,URINE NEGATIVE (NEGATIVE); UROBILINOGEN,URINE NORMAL (NORMAL)
[2018-03-31 18:04] LABS: BACTERIA,URINE TRACE /HPF; SQUAMOUS EPITHELIAL CELL,UR 0-2 /HPF
[2018-03-31 18:13] LABS: AMPHETAMINE SCREEN, URINE NEGATIVE (NEGATIVE); BARBITURATE SCREEN URINE NEGATIVE (NEGATIVE); BENZODIAZEPINES SCREEN URINE POSITIVE (NEGATIVE); CANNABINOID SCREEN, URINE NEGATIVE (NEGATIVE); COCAINE SCREEN URINE NEGATIVE (NEGATIVE); METHADONE STAT NEGATIVE (NEGATIVE); METHAMPHETAMINE SCREEN URINE S NEGATIVE (NEGATIVE); OPIATE SCREEN URINE NEGATIVE (NEGATIVE); OXYCODONE STAT NEGATIVE (NEGATIVE); PROPOXYPHENE STAT NEGATIVE (NEGATIVE); TRICYCLIC ANTIDEPRESSANTS SCRE NEGATIVE (NEGATIVE)
[2018-03-31 18:40] VITALS: BP 101/58
== END 2018-03-31 18:40 | disposition home or self-care (01) ==
LOC: EDUNIT# 13:59 → ER 14:00
DX: O20.0 Threatened abortion (principal); O99.341 Other mental disorders complicating pregnancy, first trimester; F90.9 Attention-deficit hyperactivity disorder, unspecified type; F41.9 Anxiety disorder, unspecified; F31.9 Bipolar disorder, unspecified; O99.331 Smoking (tobacco) complicating pregnancy, first trimester; F17.210 Nicotine dependence, cigarettes, uncomplicated; Z87.448 Personal history of other diseases of urinary system; Z3A.01 Less than 8 weeks gestation of pregnancy
CPT/HCPCS: 36415; 76801; 76817; 80306; 81000; 85025

== ENCOUNTER → 2018-04-06 | Outpatient (CLI) | payer BC, MEDICAID ==
--- NOTE | 2018-04-06 17:16 | Diagnostic Imaging Report ---
PROCEDURE: US OB SINGLE FETUS <14 WKS. TECHNIQUE: Multiple real-time grayscale images were obtained over the gravid uterus in various projections. INDICATION: Evaluation of dates. COMPARISON: Comparison is made to study of 03/31/2018. FINDINGS: Intrauterine gestational sac is present. pole is identified with crown-rump length of 0.7 cm. Embryonic cardiac activity is present with rate of 167 beats per minute. No significant perigestational hematoma is identified. Maternal adnexal regions are unremarkable. IMPRESSION: Normal progression of . Intrauterine gestation indicates gestational age of 6 weeks and 5 days with sonographic EDC of 11/25/2018. Dictated by: Dictated on workstation # [id number]
== END ==
LOC: RAD 14:51
PROVIDERS: ATTEND Family Medicine
DX: Z34.91 Encounter for supervision of normal pregnancy, unspecified, first trimester (principal); Z3A.01 Less than 8 weeks gestation of pregnancy
CPT/HCPCS: 76801

== ENCOUNTER 2018-04-15 02:30 | Emergency (ER) | payer BC, MEDICAID ==
[~2018-04-15] VITALS: Ht 152.4 cm; Wt 54.4 kg
[2018-04-15] MEDS ORDERED: BUSP10TA95 (02:54)
[2018-04-15] MEDS ORDERED: SERT100T8 (02:54)
--- NOTE | 2018-04-15 03:11 | ED GU-Female ---
General Chief Complaint: -Female Stated Complaint: 8WKS PREG, VAG BLEEDING,CRAMPING Nursing Triage Note: lower back pain, cramping, vag bleeding Nursing Sepsis Screen: No Definite Risk Source: patient History of Present Illness Date Seen by Provider: Apr 15, 2018 Time Seen by Provider: 02:49 Initial Comments PT ARRIVES VIA POV PT STATES SHE IS 8 WEEKS AND BEGAN SPOTTING AROUND 2330 TONIGHT STATES SHE WAS JUST LAYING IN BED, AND STATES NO INTERCOURSE FOR A COUPLE OF DAYS. STATES SHE HAS NOT USED ANY PADS, ONLY A SPOT OF BRIGHT RED BLOOD ON TISSUE WITH WIPING, AND NOW IS JUST A LIGHT PINK-ORANGE COLOR. HAS HAD SOME SLIGHT LOWER ABDOMINAL AND LOWER BACK CRAMPING PT STATES SHE SAW DR. BANDA TODAY FOR ROUTINE OB VISIT AND STATES THAT HE WAS NOT ABLE TO HEAR THE HEART BEAT. WAS NOT HAVING ANY BLEEDING AT THAT TIME HAD ULTRASOUND DONE LAST WEEK AND EVERY THING WAS NORMAL, PER PT PT STATES SHE DID THE SAME THING WITH HER OTHER AND EVERYTHING WAS FINE DELIVERED 10/2016 PT WAS SEEN IN ER 03/31 FOR THIS EXACT SAME PROBLEM--ULTRASOUND AT THAT TIME SHOWED A GESTATIONAL SAC IN ENDOMETRIUM, WITH NO POLE. PT STATES HER BLOOD TYPE IS O+ CURRENTLY WE DO NOT HAVE ANY ULTRASOUND CAPABILITIES AT NIGHT. OFFERED TO TRANSFER PT TO FACILITY IN [place] FOR FURTHER EVALUATION. PT STATES SHE WILL JUST GO HOME, OR IF HER SYMPTOMS WORSEN SHE WILL JUST DRIVE TO [place] STATES SHE "JUST FREAKED OUT" PT DECLINES ANY TESTS OR FURTHER EVALUATION HERE DANY ADVISED HER THAT DR. SLATER IS GEAR SHAVER SET UP OPERATOR THIS WEEKEND, AND IF HER SYMPTOMS PERSIST , SHE CAN CALL HIM, AND IF THEY WORSEN SHE SHOULD RETURN TO ER, WE WILL HAVE ULTRASOUND CAPABILITIES DURING THE DAY TOMORROW. PT IS VERY AGREEABLE TO THIS PLAN. Allergies and Home Medications Allergies Coded Allergies: No Known Drug Allergies (Unverified , 06/05/09) Home Medications Vit No.124/Iron/FA 1 Each Tablet, 1 EACH PO DAILY, (Reported) Patient Home Medication List Home Medication List Reviewed: Yes Review of Systems Review of Systems Constitutional: other Genitourinary: see HPI : Yes Past Cnwmguu-Lhgcqm-Lkiprn Hx Patient Social History Alcohol Use: Past History (HISTORY OF HEAVY, ALMOST DAILY USE) Recreational Drug Use: Yes (THC, METH, PILLS ( MOSTLY BENZO'S) AND "EXPERIMENTED" WITH MULTIPLE OTHER DRUGS) Drug of Choice: METH, THC, RX PILLS ( BENZO'S), "EXPERIMENTED" WITH MULTIPLE OTHER DRUGS Smoking Status: Former Smoker (1 PPD) Type Used: Cigarettes 2nd Hand Smoke Exposure: Yes Recent Foreign Travel: No Contact w/Someone Who Travel: No Recent Infectious Disease Expo: No Recent Hopitalizations: No Immunizations Up To Date Tetanus Booster (TDap): Unknown Date of Influenza Vaccine: Mar 20, 2014 Seasonal Allergies Seasonal Allergies: No Past Medical History Surgeries: Yes (LAPAROSCOPY FOR OVARIAN CYSTS, ENODMETRIOSIS; RIGHT KNEE SCOPE) Abdominal, Orthopedic Respiratory: No Cardiac: Yes Syncope Neurological: No : Yes Last Menstrual Period: Feb 18, 2018 Hx : 2 Hx Para: 1 Hx Total # of Abortions (Sp): 0 Reproductive Disorders: Yes Female Reproductive Disorders: Endometriosis, Ovarian Cyst Sexually Transmitted Disease: No HIV/AIDS: No Genitourinary: No Gastrointestinal: No Musculoskeletal: No Endocrine: No HEENT: No Cancer: No Psychosocial: Yes (SUICIDE ATTEMPTS/IDEATIONS/OVERDOSED; PSYCH ADMITS; "PARANOIA" ; POLYSUBSTANCE ABUSE) ADD/ADHD, Anxiety, Suicide Attempts, Bipolar, Depression Integumentary: No Blood Disorders: No Adverse Reaction/Blood Tranf: No Family Medical History Patient reports no known family medical history. Cancer Physical Exam Vital Signs Vital Signs - First Documented 04/15/18 02:45 Temp 97.7 Pulse 95 Resp 18 B/P (MAP) 122/70 (87) Pulse Ox 100 O2 Delivery Room Air Capillary Refill : Less Than 3 Seconds Height, Weight, BMI Height: 5'0" Weight: 120lbs. 0.0oz. 54.015323fl; 30.1 BMI Method:Stated General Appearance: no apparent distress, thin Neurologic/Psychiatric: alert, normal mood/affect Skin: normal color Progress/Results/Core Measures Suspected Sepsis Recent Fever Within 48 Hours: No Infection Criteria Present: None New/Unexplained Altered Menta: No Sepsis Screen: No Definite Risk SIRS Temperature:97.7 Pulse: 95 Respiratory Rate: 18 Blood Pressure 122 /70 Mean: 87 Results/Orders Vital Signs/I&O 04/15/18 02:45 Temp 97.7 Pulse 95 Resp 18 B/P (MAP) 122/70 (87) Pulse Ox 100 O2 Delivery Room Air Capillary Refill : Less Than 3 Seconds Blood Pressure Mean: 87 Departure Impression Primary Impression: Threatened in early Disposition: 01 HOME, SELF-CARE Condition: Stable Departure-Patient Inst. Referrals: MANOLO BANDA MD (PCP/Family) Primary Care Physician Patient Instructions: Bleeding With (DC), Threatened Miscarriage (DC) Add. Discharge Instructions: KEEP AN ACCURATE PAD COUNT--RETURN TO ER IF SOAKING MORE THAN 1 MAXI PAD AN HOUR TYLENOL NEEDED FOR PAIN LOTS OF FLUIDS NOTHING IN VAGINA--NO TAMPONS, DOUCHING OR INTERCOURSE FOLLOW UP WITH DR. BANDA IS SYMPTOMS PERSIST All discharge instructions reviewed with patient and/or family. Voiced understanding. KATIE MCFARLANE DO Apr 15, 2018 03:11
[2018-04-15 03:13] VITALS: BP 122/70
== END 2018-04-15 03:12 | disposition home or self-care (01) ==
LOC: EDUNIT# 02:30 → ER 02:32
DX: O20.0 Threatened abortion (principal); O99.321 Drug use complicating pregnancy, first trimester; F12.10 Cannabis abuse, uncomplicated; F15.10 Other stimulant abuse, uncomplicated; O99.341 Other mental disorders complicating pregnancy, first trimester; F90.9 Attention-deficit hyperactivity disorder, unspecified type; F41.9 Anxiety disorder, unspecified; F31.9 Bipolar disorder, unspecified; Z91.5 Personal history of self-harm; Z87.448 Personal history of other diseases of urinary system; Z87.891 Personal history of nicotine dependence; Z3A.08 8 weeks gestation of pregnancy
CPT/HCPCS: 99282

== ENCOUNTER → 2018-06-19 | Outpatient (CLI) | payer BC, MEDICAID ==
[~2018-06-19] MED LIST changes: +BUSP10TA95; +SERT100T8
--- NOTE | 2018-06-19 11:19 | Diagnostic Imaging Report ---
INDICATION: Uncertain dates. TECHNIQUE: Multiple real-time grayscale images were obtained over the gravid uterus. COMPARISON: 04/06/2018 FINDINGS: The prior exam of 04/06/2018 noted a single live intrauterine approximately 6 weeks 5 days gestation + / - 1/2 week. On this exam, the fetus is again visualized. The fetus is in breech presentation. heart motion was noted and a rate of 167 BPM was recorded. There were no abnormalities identified. The growth parameters are fairly uniform and have progressed as expected since the prior exam. The placenta is anterior and there is no previa. The amniotic fluid volume is within normal limits. The cervix was visualized and measures 3.1 cm in length. IMPRESSION: 1. There is a single live fetus in breech presentation approximately 17 weeks 2 days gestation + / - 1 week. EDC remains 11/25/2018. 2. There were no abnormalities identified. 3. The growth parameters have progressed as expected since the prior exam. Biometrical measurements are as follows: Biparietal 3.74 cm, age 17 weeks 3 days. Head circumference 14.03 cm, age 17 weeks 3 days. Abdominal circumference 11.2 cm, age 17 weeks 1 days. Femur length 2.35 cm, age 17 weeks 1 days. Sonographic estimate age: 17 weeks 2 days. Sonographic estimated date of delivery: 11/25/18. Estimated Weight: 181 gm (+/- 26 gm). LMP percentile: 32%. heart rate: 140 beats per minute. number: 1 of 1. Dictated by: Dictated on workstation # [id number]
== END ==
LOC: RAD 09:43
PROVIDERS: ATTEND Family Medicine
DX: O32.1XX0 Maternal care for breech presentation, not applicable or unspecified (principal); Z3A.17 17 weeks gestation of pregnancy
CPT/HCPCS: 76805

== ENCOUNTER 2018-11-20 05:54 | Inpatient (IN) | payer MEDICAID ==
[~2018-11-20] VITALS: Ht 152.4 cm; Wt 65.8 kg
[2018-11-20] VITALS (27 sets, daily range): BP systolic 89–183; BP diastolic 49–113
[2018-11-20] MEDS ORDERED: D5 LR IV SOLUTION 1,000 ML IV ONE (05:58)
--- NOTE | 2018-11-20 06:00 | NUR ---
ROSEMARY PABON presented to unit via ambulation from home/ED, accompanied by SO, for INDUCTION. ROSEMARY PABON weighed, gowned, voided, and to bed. EFHM and TOCO applied, VS taken. ROSEMARY PABON oriented to bed controls, call light, TV, heat, and A/C controls.
[2018-11-20] MEDS ORDERED: D5 LR IV SOLUTION 1,000 ML IV SCH (06:10)
[2018-11-20] MEDS ORDERED: DIPH25TA65 PO (06:29)
[2018-11-20 06:38] LABS: BASOPHILS % (AUTO) 0 % (0-10); EOSINOPHILS # (AUTO) 0.1 10^3/uL (0.0-0.3); EOSINOPHILS % (AUTO) 1 % (0-10); HEMATOCRIT 38 % (35-52); LYMPHOCYTES # (AUTO) 2.1 X 10^3 (1.0-4.0); LYMPHOCYTES % (AUTO) 23 % (12-44); MEAN CORPUSCULAR HEMOGLOBIN 31 PG (25-34); MEAN CORPUSCULAR HGB CONC 34 G/DL (32-36); MEAN CORPUSCULAR VOLUME 92 FL (80-99); MONOCYTES # (AUTO) 0.6 X 10^3 (0.0-1.0); MONOCYTES % (AUTO) 7 % (0-12); NEUTROPHILS # (AUTO) 6.2 X 10^3 (1.8-7.8); NEUTROPHILS % (AUTO) 69 % (42-75); PLATELET COUNT 226 10^3/uL (130-400); RED CELL DISTRIBUTION WIDTH 13.3 % (10.0-14.5); WHITE BLOOD COUNT 9.1 10^3/uL (4.3-11.0)
--- NOTE | 2018-11-20 07:03 | History & Physical-OB ---
OB - Chief Complaint & HPI Date/Time Date of Admission: Date of Admission: Nov 20, 2018 at 05:54 Date seen by a Provider: Nov 20, 2018 Time Seen by a Provider: 07:10 Chief Complaint/History OB-Reason for Admission/Chief: Induction of Labor Hx : 2 Hx Para: 1 Expected Date of Delivery: Nov 25, 2018 Gestational Age in Weeks: 39 Gestational Age in Days: 2 Admission Nurse Assessment Rev: Yes History of Labs GBS negative Allergies and Home Medications Allergies Coded Allergies: No Known Drug Allergies (Unverified , 06/05/09) Home Medications Diphenhydramine HCl 25 Mg Tablet, 25 MG PO PRN, (Reported) Vit No.124/Iron/FA 1 Each Tablet, 1 EACH PO DAILY, (Reported) Patient Home Medication List Home Medication List Reviewed: Yes OB - History Hx of Present Care: Yes Ultrasounds: Normal mid trimester US Obstetrical Complications: None Medical Complications: None Delivery History Hx Blood Disorders: No Adverse Rxn to Tranfusion: No Patient Past Medical History no chronic medical problems Social History/Family History HIV/AIDS: No Sexually Transmitted Disease: No 2nd Hand Smoke Exposure: Yes Immunizations Hepatitis A: Yes Hepatitis B: Yes Tetanus Booster (TDap): Unknown Date of Influenza Vaccine: Mar 20, 2014 OB - Admission Exam Physical Exam HEENT: Moist Membranes Heart: Rhythm Normal Lungs: Clear Abdomen: Gravid Cervical Dilatation: 2cm Effacement: 50% Station: -3 Membranes: Intact Heart Rate: 130's Accelerations: Accelerations Present Narayan Scoring Tool (Modified) Dilation (cm): 1-2cm (1) Effacement (%): 31-51% (1) Descent/Station: -3 (0) Cervix Consistency: Medium(1) Cervix Position: Middle/Mid-Position (1) Add 1 point for: Each previous vaginal delivery (1) Narayan Score: 5 Labs Laboratory Tests Test 11/20/18 06:15 Range/Units White Blood Count 9.1 4.3-11.0 10^3/uL Red Blood Count 4.16 L 4.35-5.85 10^6/uL Hemoglobin 13.0 11.5-16.0 G/DL Hematocrit 38 35-52 % Mean Corpuscular Volume 92 80-99 FL Mean Corpuscular Hemoglobin 31 25-34 PG Mean Corpuscular Hemoglobin Concent 34 32-36 G/DL Red Cell Distribution Width 13.3 10.0-14.5 % Platelet Count 226 130-400 10^3/uL Mean Platelet Volume 11.0 H 7.4-10.4 FL Neutrophils (%) (Auto) 69 42-75 % Lymphocytes (%) (Auto) 23 12-44 % Monocytes (%) (Auto) 7 0-12 % Eosinophils (%) (Auto) 1 0-10 % Basophils (%) (Auto) 0 0-10 % Neutrophils # (Auto) 6.2 1.8-7.8 X 10^3 Lymphocytes # (Auto) 2.1 1.0-4.0 X 10^3 Monocytes # (Auto) 0.6 0.0-1.0 X 10^3 Eosinophils # (Auto) 0.1 0.0-0.3 10^3/uL Basophils # (Auto) 0.0 0.0-0.1 10^3/uL OB - Assessment/Plan/Diagnosis Assessment Assessment: induction of labor Admission Dx 1. IUP at 39w 2d Admission Status: Inpatient Order (span 2 midnights) Reason for Inpatient Admission: induction of labor Plan Plan: Induction Induction Method: AROM Other Plan -plan on pitocin -epidural desired MANOLO BANDA MD Nov 20, 2018 07:03
[2018-11-20] MEDS ORDERED: OXYTOCIN/NORMAL SALINE 500 ML IV SCH ×2 (07:26→13:54)
[2018-11-20] MEDS ORDERED: SUFENTA 0.6MCG/ML BUPIVA 0.125 100 ML ONE (07:34)
[2018-11-20] MEDS ORDERED: LACTATED RINGERS 1,000 ML IV SCH (08:32)
[2018-11-20] MEDS ORDERED: EPIDURAL (SUFENTA 0.6MCG/ML BUPIVA 0.125%) 100 ML BAG EPI SCH (08:45)
[2018-11-20] MEDS ORDERED: diphenhydrAMINE 50 MG/ML INJ (BENADRYL) IV PRN (08:45)
[2018-11-20] MEDS ORDERED: NALOXONE 0.4 MG/ML 1 ML (NARCAN) VIAL IV PRN ×2 (08:45)
[2018-11-20] MEDS ORDERED: ONDANSETRON 4 MG/2 ML (SDV) Z0FRAN IV PRN (08:45)
[2018-11-20] MEDS ORDERED: METOCLOPRAMIDE INJ 10 MG/2 ML (REGLAN) IV PRN (08:45)
--- NOTE | 2018-11-20 09:00 | NUR ---
Pt states she felt heart beat faster - nauseated. IV fluids increased after epidural and due to symptoms. Pt states she has anxiety and becomes nauseated when anxious. Took medication prior to for anxiety. States her life has changed drastically the last 5 years. States she has a almost 2 year old and new relationship with Jose C Delfino and they have full custody of his 3 children. States in good relationship with stepchildren's mom.
[2018-11-20] MEDS ORDERED: MEPIVACAINE (CARBOCAINE) 2% 50 ML VIAL ONE (13:05)
--- NOTE | 2018-11-20 13:59 | OB Labor & Delivery Record ---
L&D History Date of Service Date of Service: Nov 20, 2018 History Expected Date of Delivery: Nov 25, 2018 Gestational Age in Weeks: 39 Hx : 2 Hx Para: 1 Complications Events: Routine care Operative Indications (Cesarea: N/A-Vaginal Delivery Intrapartal Events: None L&D Stage1 Stage One Onset of Labor - Date: Nov 20, 2018 Onset of Labor - Time: 07:05 Monitors and Tracing Monitor Mode: Internal Heart Rate: 140 Monitor Accelerations: Uniform Monitor Decelerations: Variable Station: -2 Shelter Variability: Average (6-10) Short Term Variability: Present Presentation: Vertex Vital Signs VS - Last 72 Hours, by Label 11/20/18 11/20/18 11/20/18 11/20/18 06:10 08:00 08:15 08:30 Temp 98.6 96.9 99.2 Pulse 84 75 82 101 Resp 18 18 16 B/P (MAP) 102/62 (75) 101/55 (70) 108/58 (75) 102/56 (71) O2 Delivery Room Air Room Air Room Air Room Air 11/20/18 11/20/18 11/20/18 11/20/18 08:45 09:00 09:15 09:30 Pulse 99 92 114 100 Resp 18 18 16 B/P (MAP) 105/54 (71) 92/51 (65) 102/67 (79) 99/58 (72) Pulse Ox 97 100 99 O2 Delivery Room Air 11/20/18 11/20/18 11/20/18 11/20/18 09:45 10:00 10:15 10:30 Temp 98.2 Pulse 102 82 70 75 Resp 16 16 B/P (MAP) 109/73 (85) 96/52 (67) 109/53 (71) Pulse Ox 100 100 100 100 11/20/18 11/20/18 11/20/18 11/20/18 10:45 11:00 11:15 11:30 Pulse 65 75 72 72 Resp 16 16 16 16 B/P (MAP) 112/52 (72) 112/59 (76) 109/53 (71) Pulse Ox 100 94 100 97 11/20/18 11/20/18 11/20/18 11:45 12:00 12:15 Temp 98.9 Pulse 69 72 77 Resp 16 B/P (MAP) 102/59 (73) 106/59 (75) Pulse Ox 100 100 100 Signs of Distress by FHT Signs of Distress no Rupture of Membranes Spontaneous Ruture of Membrane: No Amniotic Membrane Rupture Time: 0705 Amniotic Membrane Fluid Desc.: Clear Vaginal Bleeding Description: None Induction/Anesthesia Epidural Cath Placement - Time: 0816 L&D Stage2 Stage Two Stage II Date: Nov 20, 2018 Stage II Time: 13:19 Monitors and Tracing Monitor Mode: Internal Heart Rate: 140 Monitor Accelerations: Uniform Monitor Decelerations: Variable Stress Engineer Variability: Average (6-10) Short Term Variability: Present Position: Left Occiput Anterior Presentation: Vertex Signs of Distress by FHT Signs of Distress no Cord Descript/Complications Cord Vessel Description: 3 Vessels Delivery Type Delivery Method: Spontaneous Vaginal Anterior Shoulder: Left Episiotomy/Perineal Laceration Laceraction(s)/Extensions: Yes Episiotomy Description: Midline Sutures Used: Vicryl Condition of Infant Delivery 1 minute Comment: 8 5 minute Comment: 9 Condition of Infant Condition of : Living Exam: No Observed Abnormalities Resuscitation Resuscitation: N/A - Spontaneous Resp L&D Stage3 Stage Three Stage III Date: Nov 20, 2018 Stage III Time: 13:23 Pictocin Pitocin Administration mu/min: 16 Pitocin ml/hr: 16 Pitocin Administration Comment: 0853 Pitocin initiated Placenta Delivery Placenta Delivery: Spontaneous Delivery Summary Summary Estimated blood loss (mL): 200 Condition of Delivery Examined: Cervix Examined Post Hemorrhage: No Intervention Required none MANOLO BANDA MD Nov 20, 2018 13:59
[2018-11-20] MEDS ORDERED: BENZOCAINE/MENTHOL (DERMOPLAST) 56 ML CAN TP PRN (14:00)
[2018-11-20] MEDS ORDERED: CATHETER FLUSH 10 ML SYR IV SCH ×2 (14:00)
[2018-11-20] MEDS ORDERED: TETANUS,DIPTH,PERTUSS P/F (BOOSTRIX) 0.5 ML VIAL IM ONE (14:00)
[2018-11-20] MEDS ORDERED: WITCH HAZEL(TUCKS) 40 EA JAR TOP PRN (14:00)
[2018-11-20] MEDS ORDERED: MEASLES,MUMPS,RUBELLA 1 EA INJ SQ ONE (14:00)
[2018-11-20] MEDS ORDERED: diphenhydrAMINE 25 MG TAB (BENADRYL) PO PRN (14:45)
[2018-11-20] MEDS: IBUPROFEN 600 MG (MOTRIN) TAB PO SCH ×2 (15:16→21:07)
--- NOTE | 2018-11-20 16:10 | NUR ---
Report rec'd from Mauro Stanley RN. Cares assumed at this time.
--- NOTE | 2018-11-20 18:15 | NUR ---
Pt assisted up to bathroom per Marcos Marquez RN without incident. +void clear, yellow urine. pericare performed. fresh vpad and underwear applied. pt back to bed without difficulty. pt denies further needs or concerns at this time.
[2018-11-20] MEDS: DOCUSATE SODIUM 100 MG (COLACE) CAP PO SCH (21:07)
[2018-11-21 01:00] VITALS: BP 91/55
[2018-11-21 03:57] VITALS: BP 90/49
[2018-11-21] MEDS: IBUPROFEN 600 MG (MOTRIN) TAB PO SCH ×3 (03:57→15:55)
[2018-11-21 05:48] LABS: BASOPHILS % (AUTO) 0 % (0-10); EOSINOPHILS # (AUTO) 0.2 10^3/uL (0.0-0.3); EOSINOPHILS % (AUTO) 2 % (0-10); HEMATOCRIT 34 % (35-52); HEMOGLOBIN 11.2 G/DL (11.5-16.0); LYMPHOCYTES # (AUTO) 2.4 X 10^3 (1.0-4.0); LYMPHOCYTES % (AUTO) 22 % (12-44); MEAN CORPUSCULAR HEMOGLOBIN 31 PG (25-34); MEAN CORPUSCULAR HGB CONC 33 G/DL (32-36); MEAN CORPUSCULAR VOLUME 92 FL (80-99); MEAN PLATELET VOLUME 10.5 FL (7.4-10.4); MONOCYTES # (AUTO) 0.6 X 10^3 (0.0-1.0); MONOCYTES % (AUTO) 5 % (0-12); NEUTROPHILS # (AUTO) 7.8 X 10^3 (1.8-7.8); NEUTROPHILS % (AUTO) 71 % (42-75); PLATELET COUNT 215 10^3/uL (130-400); RED CELL DISTRIBUTION WIDTH 13.6 % (10.0-14.5)
[2018-11-21] MEDS ORDERED: PRENATAL VITAMIN 1 EA TAB PO SCH (07:00)
--- NOTE | 2018-11-21 07:34 | Discharge Summary ---
Diagnosis/Chief Complaint Date of Admission Nov 20, 2018 at 05:54 Date of Discharge November 21, 2018 Discharge Date: Nov 21, 2018 Discharge Time: 14:00 Admission Diagnosis Admission Diagnosis 1. IUP at 39w2d gestation Discharge Diagnosis 1. IUP at 39w2d gestation Reason Hospital Visit 33 yo G2 now T2 L2 who initially presented to L&D during the am of Nov 20 for induction of labor by AROM. Discharge Summary-OBS Procedures 1. Epidural per anesthesia 2 3. Repair of MLE Discharge Physical Examination Allergies: Coded Allergies: No Known Drug Allergies (Unverified , 06/05/09) Vitals & I&Os Vital Signs Date Time Temp Pulse Resp B/P (MAP) Pulse Ox O2 Delivery O2 Flow Rate FiO2 11/21/18 03:57 98.6 72 18 90/49 (63) 98 Room Air General Appearance: No Acute Distress HEENT: Mucous Memb Moist/[place] Respiratory: Clear to Auscultation Cardiovascular: Regular Rate Abdominal: Soft (with uterus firm) Skin: No Rashes Hospital Course Was the Problem List Reviewed?: Yes See PN Pending Labs Laboratory Tests 11/21/18 05:25: White Blood Count 11.0, Red Blood Count 3.63, Hemoglobin 11.2, Hematocrit 34, Mean Corpuscular Volume 92, Mean Corpuscular Hemoglobin 31, Mean Corpuscular He moglobin Concent 33, Red Cell Distribution Width 13.6, Platelet Count 215, Mean Platelet Volume 10.5, Neutrophils (%) (Auto) 71, Lymphocytes (%) (Auto) 22, Monocytes (%) (Auto) 5, Eosinophils (%) (Auto) 2, Basophils (%) (Auto) 0, Neutrophils # (Auto) 7.8, Lymphocytes # (Auto) 2.4, Monocytes # (Auto) 0.6, Eosinophils # (Auto) 0.2, Basophils # (Auto) 0.0 Discharge Instructions to patient/family Please see electronic discharge instructions given to patient. Discharge Medications Reviewed and agree with Discharge Medication list on patient's Discharge Instruction sheet Clinical Quality Measures DVT/VTE Risk/Contraindication: Risk Factor Score Per Nursin RFS Level Per Nursing on Admit: 1=Low/No VTE PPX MANOLO BANDA MD Nov 21, 2018 07:34
[2018-11-21] MEDS ORDERED: OXC5T PO (07:35)
--- NOTE | 2018-11-21 07:36 | Discharge Inst-Women's Service ---
Discharge Inst-Women's Serv Depart Medication/Instructions New, Converted or Re-Newed RX: RX on Chart Consults/Follow Up Additional Follow Up: Yes (with Dr Banda in 6 weeks) Activity Activity: Activity as Tolerated Driving Instructions: You May Drive Diet Discharge Diet: Regular Diet Return to The Hospital For: as below Symptoms to Report to : Swelling Increased, Bleeding Excessive, Pain Increased, Fever Over 101 Degrees F, Vaginal Discharge Foul For Any Problems or Questions: Contact Your Physician MANOLO BANDA MD Nov 21, 2018 07:36
[2018-11-21 08:00] VITALS: BP 87/55
--- NOTE | 2018-11-21 08:00 | NUR ---
A.M. ASSESSMENT COMPLETED. VSS.
[2018-11-21] MEDS: DOCUSATE SODIUM 100 MG (COLACE) CAP PO SCH (08:07)
--- NOTE | 2018-11-21 09:00 | NUR ---
SHOWERED WITHOUT PROBLEMS. CARING FOR IN ROOM.
[2018-11-21] MEDS ORDERED: TETANUS,DIPTH,PERTUSS P/F (BOOSTRIX) 0.5 ML VIAL IM ONE (10:03)
--- NOTE | 2018-11-21 10:33 | NUR ---
TDAP GIVEN IM IN LEFT DELTOID. SITE CLEAR.
--- NOTE | 2018-11-21 10:35 | NUR ---
OXYIR 5 MG P.O. FOR C/O ABD CRAMPING. ICE PACK TO PERINEUM.
--- NOTE | 2018-11-21 11:30 | NUR ---
FEEDING A BOTTLE. STATES PAIN DECREASED. PAPERWORK GIVEN FOR CERTIFICATE.
[2018-11-21 12:30] VITALS: BP 101/51
--- NOTE | 2018-11-21 12:30 | NUR ---
VSS. DENIES PAIN AT THIS TIME. CARING FOR INFANT IN ROOM.
--- NOTE | 2018-11-21 14:00 | NUR ---
INFANT TO [facility] FOR 24 HOUR SCREENING.
--- NOTE | 2018-11-21 15:50 | NUR ---
DISCHARGE INSTRUCTIONS REVIEWED WITH COPY TO PT. RX GIVEN. STATES UNDERSTANDING OF ALL INSTRUCTIONS AND NEED TO F/U SCHEDULED AND NEEDED.
[2018-11-21 16:05] VITALS: BP 101/51
--- NOTE | 2018-11-21 16:05 | NUR ---
DISMISSED AMB FROM [facility] WITH INFANT TO FAMILY CAR IN STABLE CONDITION ACC BY Chan, [age] YR OLD, AND PIA MAR.
== END 2018-11-21 16:05 | disposition home or self-care (01) | DRG 807 ==
LOC: LDRP 05:54
PROVIDERS: ADMIT Family Medicine; ATTEND Family Medicine
PROC: 10E0XZZ Delivery of Products of Conception, External Approach (ICD-10-PCS; principal; 2018-11-20)
PROC: 0W8NXZZ Division of Female Perineum, External Approach (ICD-10-PCS; 2018-11-20)
PROC: 10907ZC Drainage of Amniotic Fluid, Therapeutic from Products of Conception, Via Natural or Artificial Opening (ICD-10-PCS; 2018-11-20)
DX: O80 Encounter for full-term uncomplicated delivery (principal); Z37.0 Single live birth; Z3A.39 39 weeks gestation of pregnancy; Z23 Encounter for immunization
CPT/HCPCS: 36415; 85025; 86850; 86900; 86901; 90715

== ENCOUNTER 2021-05-02 13:23 | Emergency (ER) | payer MEDICAID ==
[~2021-05-02] VITALS: Ht 152 cm; Wt 54.0 kg
[~2021-05-02 13:23] MED LIST changes: +DIPH25TA65 PO; +OXC5T PO; +SERT-414; -SERT100T8
[2021-05-02 14:38] LABS: BASOPHILS % (AUTO) 0 % (0-10); EOSINOPHILS # (AUTO) 0.2 10^3/uL (0.0-0.3); EOSINOPHILS % (AUTO) 2 % (0-10); HEMATOCRIT 43 % (35-52); HEMOGLOBIN 14.7 g/dL (11.5-16.0); LYMPHOCYTES # (AUTO) 2.7 10^3/uL (1.0-4.0); LYMPHOCYTES % (AUTO) 27 % (12-44); MEAN CORPUSCULAR HEMOGLOBIN 33 pg (25-34); MEAN CORPUSCULAR HGB CONC 34 g/dL (32-36); MEAN CORPUSCULAR VOLUME 98 fL (80-99); MEAN PLATELET VOLUME 10.7 fL (9.0-12.2); MONOCYTES # (AUTO) 0.5 10^3/uL (0.0-1.0); MONOCYTES % (AUTO) 5 % (0-12); NEUTROPHILS # (AUTO) 6.6 10^3/uL (1.8-7.8); NEUTROPHILS % (AUTO) 66 % (42-75); PLATELET COUNT 326 10^3/uL (130-400)
[2021-05-02 14:42] LABS: BILIRUBIN,URINE NEGATIVE (NEGATIVE); CLARITY,URINE CLEAR; COLOR,URINE YELLOW; GLUCOSE, URINE (UA) NEGATIVE (NEGATIVE); KETONES,URINE NEGATIVE (NEGATIVE); LEUKOCYTE ESTERASE ,URINE NEGATIVE (NEGATIVE); NITRITE,URINE NEGATIVE (NEGATIVE); PH,URINE 7.5 (5-9); PROTEIN,URINE NEGATIVE (NEGATIVE)
[2021-05-02 14:42] LABS: ALBUMIN 4.7 GM/DL (3.2-4.5); CHLORIDE 104 MMOL/L (98-107); POTASSIUM 3.5 MMOL/L (3.6-5.0); SODIUM 139 MMOL/L (135-145)
[2021-05-02 14:43] LABS: CALCIUM 9.6 MG/DL (8.5-10.1)
[2021-05-02 14:45] LABS: GLUCOSE 88 MG/DL (70-105); TOTAL PROTEIN 7.7 GM/DL (6.4-8.2)
[2021-05-02] MEDS ORDERED: METOCLOPRAMIDE INJ 10 MG/2 ML (REGLAN) IVP ONE (14:45)
[2021-05-02] MEDS ORDERED: diphenhydrAMINE 50 MG/ML INJ (BENADRYL) IV ONE (14:45)
[2021-05-02] MEDS ORDERED: NS IV 1000 ML 1,000 ML IV SCH (14:45)
[2021-05-02 14:46] LABS: CARBON DIOXIDE 23 MMOL/L (21-32)
[2021-05-02 14:47] LABS: BILIRUBIN,TOTAL 0.4 MG/DL (0.1-1.0)
[2021-05-02 14:48] LABS: ALKALINE PHOSPHATASE 56 U/L (40-136); CREATININE SERUM 0.76 MG/DL (0.60-1.30); GFR ESTIMATED 88
[2021-05-02 14:49] LABS: BACTERIA,URINE TRACE /HPF
[2021-05-02 14:49] LABS: BUN/CREATININE RATIO 14
[2021-05-02 14:51] LABS: ALANINE AMINOTRANSFERASE 12 U/L (0-55)
[2021-05-02 14:52] LABS: LIPASE 26 U/L (8-78)
--- NOTE | 2021-05-02 15:29 | ED Abdominal Pain ---
General Chief Complaint: Abdominal/GI Problems Stated Complaint: RUQ PAIN Nursing Triage Note: PT ARRIVES TO ER WITH C/O RUQ PAIN AND VOMITTING FOR 3 DAYS. PT RECENTLY FOUND OUT SHE HAS 2 LIVER MASSES BUT UNKNOWN WHAT THEY ARE AT THIS TIME SHE IS WAITING ON A NEW DR Source of Information: Patient Exam Limitations: No Limitations History of Present Illness Date Seen by Provider: May 02, 2021 Time Seen by Provider: 14:18 Initial Comments Patient is a 35-year-old female who presents to the emergency department today with a chief complaint of severe right upper quadrant pain, nausea and vomiting for the last 3 days. Patient states that she has had increasing pain over the last 5 or 6 months with occasional nausea and vomiting, she has been worked up by [facility] with a gallbladder ultrasound, when they called her with her results they said that her gallbladder looked "okay" but she had possibly "2 liver masses". Patient states she has not really been able to hold down much food or fluids over the last 3 days. She states she has been using Zofran 1 to 2 tablets multiple times a day to control her nausea. She is not really having bowel movements right now because she is not able to eat or drink much. She denies fevers, chills, cough or congestion. No shortness of breath or chest pain. States right upper quadrant abdominal pain. No problems with urination, denies black or bloody stools or blood in her vomitus. Patient has a remote history of IV drug abuse, she also used to drink alcohol very heavily. She states she is been previously tested for hep C and it is "neg ative". History of tubal ligation. All other review of systems reviewed and negative except as stated. Timing/Duration: 2-3 Days Severity/Quality: Severe, Cramping, Dull Location: RUQ Radiation: No Radiation Activities at Onset: None Modifying Factors: Improves With Lying down Associated Symptoms: Nausea/Vomiting, Weakness Allergies and Home Medications Allergies Coded Allergies: No Known Drug Allergies (Unverified , 06/05/09) Patient Home Medication List Home Medication List Reviewed: Yes Oxycodone Hcl (Oxycodone IR) 5 Mg Tab, 5 MG PO Q4HR PRN for PAIN-SEVERE Prescribed by: MANOLO BANDA on 11/21/18 0735 Vit No.124/Iron/FA ( Vitamin Tablet) 1 Each Tablet, 1 EACH PO DAILY, (Reported) Entered as Reported by: EILEEN DURAN on 10/18/162124 Review of Systems Review of Systems Constitutional: see HPI EENTM: No Symptoms Reported Cardiovascular: No Symptoms Reported Gastrointestinal: Abdominal Pain, Nausea, Poor Fluid Intake, Vomiting Genitourinary: No Symptoms Reported Musculoskeletal: no symptoms reported Skin: no symptoms reported Psychiatric/Neurological: No Symptoms Reported, Other (History of bipolar disorder) Endocrine: No Symptoms Reported Hematologic/Lymphatic: No Symptoms Reported All Other Systems Reviewed Negative Unless Noted: Yes Past Ysjncwp-Hlqdta-Zpasjz Hx Patient Social History Tobacco Use?: Yes Smoking Status: Current Everyday Smoker Substance use?: No Alcohol Use?: No Pt feels they are or have been: No Immunizations Up To Date Tetanus Booster (TDap): Unknown Influenza Vaccine Up-to-Date: No; Not Current First/Initial COVID19 Vaccinat: 10/08/20 Second COVID19 Vaccination Ed: 11/07/20 COVID19 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[facility] [facility] Seasonal Allergies Seasonal Allergies: No Past Medical History Surgeries: Yes (LAPAROSCOPY FOR OVARIAN CYSTS, ENODMETRIOSIS; RIGHT KNEE SCOPE) Abdominal, Orthopedic Respiratory: No Cardiac: Yes Syncope Neurological: No Last Menstrual Period: May 11, 2020 Reproductive Disorders: Yes Female Reproductive Disorders: Endometriosis, Ovarian Cyst Sexually Transmitted Disease: No HIV/AIDS: No Genitourinary: No Gastrointestinal: No Musculoskeletal: No Endocrine: No HEENT: No Cancer: No Psychosocial: Yes ADD/ADHD, Anxiety, Suicide Attempts, Bipolar, Depression Integumentary: No Blood Disorders: No Adverse Reaction/Blood Tranf: No Family Medical History Patient reports no known family medical history. Cancer Physical Exam Vital Signs Vital Signs - First Documented 05/02/21 13:59 Temp 36.7 Pulse 86 Resp 18 B/P (MAP) 135/64 (87) Pulse Ox 100 O2 Delivery Room Air Capillary Refill : Less Than 3 Seconds Height/Weight/BMI Height: 5'0.00" Weight: 145lbs. 0.0oz. [id number]; 23.00 BMI Method:Stated General Appearance: WD/WN, no apparent distress HEENT: other (Slightly dry oral mucosa) Neck: full range of motion, supple Respiratory: lungs clear, normal breath sounds, no respiratory distress, no accessory muscle use Cardiovascular: regular rate, rhythm Gastrointestinal: normal bowel sounds, soft, tenderness (Significant tenderness in the epigastrium and right upper quadrant. Liver margin is palpable 1 to 2 fingerbreadths below the costal margin particularly on the right flank. No m asses are appreciated. Patient has normal bowel sounds. Rest of the abdomen is soft, nontender and nondistended) Extremities: normal range of motion, non-tender, normal inspection, no pedal edema, no calf tenderness, normal capillary refill Neurologic/Psychiatric: alert, normal mood/affect, oriented x 3 Skin: normal color, warm/dry; No jaundice, No pallor Progress/Results/Core Measures Results/Orders Lab Results Laboratory Tests Test 05/02/21 14:00 05/02/21 14:08 Range/Units Urine Color YELLOW Urine Clarity CLEAR Urine pH 7.5 5-9 Urine Specific [place] 1.010 L 1.016-1.022 Urine Protein NEGATIVE NEGATIVE Urine Glucose (UA) NEGATIVE NEGATIVE Urine Ketones NEGATIVE NEGATIVE Urine Nitrite NEGATIVE NEGATIVE Urine Bilirubin NEGATIVE NEGATIVE Urine Urobilinogen 0.2 < = 1.0 MG/DL Urine Leukocyte Esterase NEGATIVE NEGATIVE Urine RBC (Auto) NEGATIVE NEGATIVE Urine RBC NONE /HPF Urine WBC NONE /HPF Urine Squamous Epithelial Cells 5-10 /HPF Urine Crystals NONE /LPF Urine Bacteria TRACE /HPF Urine Casts NONE /LPF Urine Mucus NEGATIVE /LPF Urine Culture Indicated NO White Blood Count 10.0 4.3-11.0 10^3/uL Red Blood Count 4.42 3.80-5.11 10^6/uL Hemoglobin 14.7 11.5-16.0 g/dL Hematocrit 43 35-52 % Mean Corpuscular Volume 98 80-99 fL Mean Corpuscular Hemoglobin 33 25-34 pg Mean Corpuscular Hemoglobin Concent 34 32-36 g/dL Red Cell Distribution Width 11.8 10.0-14.5 % Platelet Count 326 130-400 10^3/uL Mean Platelet Volume 10.7 9.0-12.2 fL Immature Granulocyte % (Auto) 0 % Neutrophils (%) (Auto) 66 42-75 % Lymphocytes (%) (Auto) 27 12-44 % Monocytes (%) (Auto) 5 0-12 % Eosinophils (%) (Auto) 2 0-10 % Basophils (%) (Auto) 0 0-10 % Neutrophils # (Auto) 6.6 1.8-7.8 10^3/uL Lymphocytes # (Auto) 2.7 1.0-4.0 10^3/uL Monocytes # (Auto) 0.5 0.0-1.0 10^3/uL Eosinophils # (Auto) 0.2 0.0-0.3 10^3/uL Basophils # (Auto) 0.0 0.0-0.1 10^3/uL Immature Granulocyte # (Auto) 0.0 0.0-0.1 10^3/uL Sodium Level 139 135-145 MMOL/L Potassium Level 3.5 L 3.6-5.0 MMOL/L Chloride Level 104 98-107 MMOL/L Carbon Dioxide Level 23 21-32 MMOL/L Anion Gap 12 5-14 MMOL/L Blood Urea Nitrogen 11 7-18 MG/DL Creatinine 0.76 0.60-1.30 MG/DL Estimat Glomerular Filtration Rate 88 BUN/Creatinine Ratio 14 Glucose Level 88 70-105 MG/DL Calcium Level 9.6 8.5-10.1 MG/DL Corrected Calcium 8.5-10.1 MG/DL Total Bilirubin 0.4 0.1-1.0 MG/DL Aspartate Amino Transf (AST/SGOT) 18 5-34 U/L Alanine Aminotransferase (ALT/SGPT) 12 0-55 U/L Alkaline Phosphatase 56 40-136 U/L Total Protein 7.7 6.4-8.2 GM/DL Albumin 4.7 H 3.2-4.5 GM/DL Lipase 26 8-78 U/L Serum Test, Qualitative NEGATIVE NEGATIVE My Orders Orders - PEBBLES IBANEZ MD Ed Iv/Invasive Line Start (05/02/21 14:31) Cbc With Automated Diff (05/02/21 14:31) Comprehensive Metabolic Panel (05/02/21 14:31) Lipase (05/02/21 14:31) Ua Culture If Indicated (05/02/21 14:31) Hcg,Qualitative Serum (05/02/21 14:31) Ns Iv 1000 Ml (Sodium Chloride 0.9%) (05/02/21 14:45) Metoclopramide Injection (Reglan Injecti (05/02/21 14:45) Diphenhydramine Injection (Benadryl Inje (05/02/21 14:45) Iohexol Injection (Omnipaque 350 Mg/Ml 1 (05/02/21 15:30) Di Iv Start (Assessment) .IV start (05/02/21 15:16) Received Contrast (Hold Metformin- Contr (05/02/21 15:30) Sodium Chloride Flush (Catheter Flush Sy (05/02/21 15:30) Ns (Ivpb) (Sodium Chloride 0.9% Ivpb Bag (05/02/21 15:30) Ct Abdomen/Pelvis W Wo (05/02/21 ) Medications Given in ED Current Medications Medications Dose Ordered Sig/Bonny Route Start Time Stop Time Status Last Admin Dose Admin Diphenhydramine HCl 25 mg ONCE ONCE IV 05/02/21 14:45 05/02/21 14:46 DC 05/02/21 14:48 25 MG Iohexol 100 ml ONCE ONCE IV 05/02/21 15:30 05/02/21 15:31 DC 05/02/21 15:31 72 ML Metoclopramide HCl 5 mg ONCE ONCE IVP 05/02/21 14:45 05/02/21 14:46 DC 05/02/21 14:48 5 MG Sodium Chloride 100 ml ONCE ONCE IV 05/02/21 15:30 05/02/21 15:31 DC 05/02/21 15:31 80 ML Vital Signs/I&O 05/02/21 13:59 Temp 36.7 Pulse 86 Resp 18 B/P (MAP) 135/64 (87) Pulse Ox 100 O2 Delivery Room Air Blood Pressure Mean: 87 Progress Progress Note #1: Time: 15:31 Progress Note Patient in CT at this time Progress Note #2: Time: 16:56 Progress Note Patient back from CT, CT shows 2 benign-appearing hemangiomas in the liver. Also findings suspicious for a little gastritis. I recommended the patient for some Bentyl, given her some Phenergan. Recommended a bland diet. Follow-up wit h [facility]. Return precautions given, the patient may need a HIDA scan as her symptoms are often set off with eating. 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 Patient verbalized understanding, all questions are sought and answered patient is stable for discharge. Diagnostic Imaging Diagonstic Imaging: CT Comments [facility]. [place], [place] NAME: ROSEMARY PABON [facility] REC#: [id number] PT STATUS: REG ER : 1985 PHYSICIAN: PEBBLES IBANEZ MD ADMIT DATE: 05/02/21/ER Signed Date of Exam:05/02/21 CT ABDOMEN/PELVIS W WO PROCEDURE: CT abdomen and pelvis with and without contrast. INDICATION: Three day history of right upper quadrant pain and vomiting. COMPARISON: Correlation with abdominopelvic noncontrasted CT of 02/27/2014. TECHNIQUE: Precontrast hepatic arterial phase portal venous and 10 minute delayed post contrast-enhanced acquisitions were performed utilizing hepatic protocol. All CT scans use one or more of the following dose optimizing techniques: automated exposure control, MA and/or KvP adjustment based on patient size and exam type or iterative reconstruction. FINDINGS: Within the lateral sector of the left hepatic lobe and the posterior sector of the right hepatic lobe there are hepatic masses measuring 1.4 cm and 2.2 cm, respectively. These showed peripheral nodular enhancement and on the delayed images had completely filled in and were isodense to the remaining liver parenchyma. This pattern is consistent with benign hemangiomas. No suspicious liver mass. No bile duct dilatation the gallbladder showed no radiodense stone. The pancreas and peripancreatic fat appears normal. There is no hydroureteronephrosis. No opaque urinary tract calculi. No perinephric or periureteric stranding. Aortoiliac and mesenteric vessels are patent and nonaneurysmal. There is no bowel obstruction. The stomach is nondistended challenging evaluation of its wall. Its wall is likely at least mildly thickened and there is a suggestion of at least some edematous changes to the wall at the gastric antrum, correlate for gastritis. No evidence for outlet obstruction. No findings of perforation. No inflammatory changes along the duodenal sweep. Small and large bowel unobstructed, nonfocal and nonacute. There is no abscess, hematoma or acute fluid collection. The uterus and adnexa are unremarkable with likely dominant follicular cyst in the left ovary measuring 1.8 cm. The urinary bladder appears normal. No diverticulitis. The appendix is absent. No focal inflammatory changes within the pelvis. There is no pneumatosis. There is no free air. IMPRESSION: 1. Equivocal findings for gastritis without outlet obstruction or viscus perforation, correlate clinically as no other potentially acute abnormality was seen. 2. Benign masses in the right and left hepatic lobes have enhancement features consistent with benign hemangiomas. Dictated by: Dictated on workstation # [id number] Dict: 05/02/21 1552 Trans: 05/02/211621 [facility] [id number] Interpreted by: JOVANNI MCCABE Electronically signed by: JOVANNI MCCABE 05/02/211621 Departure Impression Primary Impression: Abdominal pain Qualified Codes: R10.11 - Right upper quadrant pain Additional Impression: Hemangioma of liver Disposition: HOME, SELF-CARE Condition: Stable Departure-Patient Inst. Decision time for Depature: 16:54 Referrals: [facility],LOCAL PHYSICIAN (PCP) Primary Care Physician Add. Discharge Instructions: Take the Bentyl 1 every 6 hours as needed for abdominal cramping/spasms. Phenergan 1 every 6 hours as needed for nausea. You can also take an mhhr-wei-vnwdmvq acid tire shop mechanic such as generic Prilosec or Pepcid to help reduce acid formation in her stomach, this may help your symptoms as well. Avoid fatty foods as this can possibly irritate your gallbladder and cause more more pain in the right side of your abdomen. Please follow-up with [facility]. You may need further evaluation of your gallbladder with a HIDA scan. Return to the emergency department for any fevers, increased abdominal pain, nausea vomiting or other emergent concerning symptoms. Scripts Promethazine HCl (Promethazine Tablet) 25 Mg Tablet 25 MG PO Q6H PRN for NAUSEA/VOMITING, #20 TAB Prov: PEBBLES IBANEZ MD 05/02/21 Dicyclomine HCl (Dicyclomine HCl) 20 Mg Tablet 20 MG PO Q6H PRN for abdominal cramping, #30 TAB Prov: PEBBLES IBANEZ MD 05/02/21 PEBBLES BIANEZ MD May 02, 2021 15:29
[2021-05-02] MEDS ORDERED: HOLD METFORMIN - RECEIVED CONTRAST 20 ML VIAL IV SCH (15:30)
[2021-05-02] MEDS ORDERED: NS 100 ML (IVPB) BAG IV ONE (15:30)
[2021-05-02] MEDS ORDERED: IOHEXOL 350 MG/ML 100 ML (OMNIPAQUE 350) VIAL IV ONE (15:30)
[2021-05-02] MEDS ORDERED: CATHETER FLUSH 10 ML SYR IV PRN (15:30)
--- NOTE | 2021-05-02 16:10 | Diagnostic Imaging Report ---
PROCEDURE: CT abdomen and pelvis with and without contrast. INDICATION: Three day history of right upper quadrant pain and vomiting. COMPARISON: Correlation with abdominopelvic noncontrasted CT of 02/27/2014. TECHNIQUE: Precontrast hepatic arterial phase portal venous and 10 minute delayed post contrast-enhanced acquisitions were performed utilizing hepatic protocol. All CT scans use one or more of the following dose optimizing techniques: automated exposure control, MA and/or KvP adjustment based on patient size and exam type or iterative reconstruction. FINDINGS: Within the lateral sector of the left hepatic lobe and the posterior sector of the right hepatic lobe there are hepatic masses measuring 1.4 cm and 2.2 cm, respectively. These showed peripheral nodular enhancement and on the delayed images had completely filled in and were isodense to the remaining liver parenchyma. This pattern is consistent with benign hemangiomas. No suspicious liver mass. No bile duct dilatation the gallbladder showed no radiodense stone. The pancreas and peripancreatic fat appears normal. There is no hydroureteronephrosis. No opaque urinary tract calculi. No perinephric or periureteric stranding. Aortoiliac and mesenteric vessels are patent and nonaneurysmal. There is no bowel obstruction. The stomach is nondistended challenging evaluation of its wall. Its wall is likely at least mildly thickened and there is a suggestion of at least some edematous changes to the wall at the gastric antrum, correlate for gastritis. No evidence for outlet obstruction. No findings of perforation. No inflammatory changes along the duodenal sweep. Small and large bowel unobstructed, nonfocal and nonacute. There is no abscess, hematoma or acute fluid collection. The uterus and adnexa are unremarkable with likely dominant follicular cyst in the left ovary measuring 1.8 cm. The urinary bladder appears normal. No diverticulitis. The appendix is absent. No focal inflammatory changes within the pelvis. There is no pneumatosis. There is no free air. IMPRESSION: 1. Equivocal findings for gastritis without outlet obstruction or viscus perforation, correlate clinically as no other potentially acute abnormality was seen. 2. Benign masses in the right and left hepatic lobes have enhancement features consistent with benign hemangiomas. Dictated by: Dictated on workstation # [id number]
[2021-05-02] MEDS ORDERED: PROM25TA14 PO (16:56)
[2021-05-02] MEDS ORDERED: DICY20TA10 PO (16:56)
[2021-05-02 17:07] VITALS: BP 103/69
== END 2021-05-02 17:08 | disposition home or self-care (01) ==
LOC: EDUNIT# 13:23 → ER 13:25
DX: D18.09 Hemangioma of other sites (principal); F17.200 Nicotine dependence, unspecified, uncomplicated
CPT/HCPCS: 36415; 74178; 80053; 81000; 83690; 84703; 85025

== ENCOUNTER 2021-11-20 05:28 | Outpatient (CLI) | payer MEDICAID ==
[~2021-11-20] VITALS: Ht 152.4 cm; Wt 56.8 kg
[~2021-11-20 05:28] MED LIST changes: +DICY20TA PO; +PROM25TA14 PO
[2021-11-24] MEDS ORDERED: ALPR0.5T7 PO (10:43)
[2021-11-24] MEDS ORDERED: FLUO20CA42 PO (10:43)
[2021-11-24] MEDS ORDERED: TRZ50T PO (10:43)
[2021-11-24] MEDS ORDERED: OLAN10TA71 PO (10:43)
== END 2021-11-24 10:54 | disposition home or self-care (01) ==
LOC: PREOP 05:28
PROVIDERS: ATTEND Obstetrics & Gynecology
DX: Z01.818 Encounter for other preprocedural examination (principal)

== ENCOUNTER 2021-11-27 07:39 | Day surgery (SDC) | payer MEDICAID ==
[~2021-11-27 07:39] MED LIST changes: +ALPR0.5T7 PO; +FLUO20CA42 PO; +OLAN10TA71 PO; +TRZ50T PO
[2021-11-27] MEDS ORDERED: LIDOCAINE/EPI 2% 1:200,00 (XYLOCAINE) 10 ML VIAL ONE (07:42)
[2021-11-27] MEDS ORDERED: ESTROGENS CONJ INJECTION 25 MG in WATER (STERILE) FOR INJECTION 5 ML IV NR (08:00)
[2021-11-27] MEDS ORDERED: ceFAZolin INJECTION 1,000 MG VIAL IV ONE (08:00)
[2021-11-27] MEDS ORDERED: ONDANSETRON 4 MG/2 ML (SDV) Z0FRAN IVP PRN ×2 (08:00)
[2021-11-27] MEDS ORDERED: fentaNYL INJ 100 MCG/2 ML AMP IVP PRN (08:00)
[2021-11-27] MEDS ORDERED: oxyCODONE/APAP 5/325MG (PERCOCET 5) TABLET PO PRN (08:00)
[2021-11-27] MEDS ORDERED: D5 LR IV SOLUTION 1,000 ML IV SCH (08:00)
[2021-11-27] MEDS ORDERED: KETOROLAC 30 MG/ML VIAL IVP SCH (08:00)
[2021-11-27] MEDS ORDERED: LACTATED RINGERS 1,000 ML IV PRN (08:00)
[2021-11-27 08:08] LABS: AMPHETAMINE SCREEN, URINE POSITIVE (NEGATIVE); BARBITURATE SCREEN URINE NEGATIVE (NEGATIVE); BENZODIAZEPINES SCREEN URINE POSITIVE (NEGATIVE); CANNABINOID SCREEN, URINE NEGATIVE (NEGATIVE); COCAINE SCREEN URINE NEGATIVE (NEGATIVE); METHADONE STAT NEGATIVE (NEGATIVE); OPIATE SCREEN URINE NEGATIVE (NEGATIVE); OXYCODONE STAT POSITIVE (NEGATIVE); PROPOXYPHENE STAT NEGATIVE (NEGATIVE); TRICYCLIC ANTIDEPRESSANTS SCRE NEGATIVE (NEGATIVE)
[2021-11-27 08:16] LABS: BASOPHILS % (AUTO) 0 % (0-10); EOSINOPHILS # (AUTO) 0.1 10^3/uL (0.0-0.3); EOSINOPHILS % (AUTO) 1 % (0-10); HEMATOCRIT 38 % (35-52); HEMOGLOBIN 13.1 g/dL (11.5-16.0); LYMPHOCYTES # (AUTO) 2.1 10^3/uL (1.0-4.0); LYMPHOCYTES % (AUTO) 22 % (12-44); MEAN CORPUSCULAR HEMOGLOBIN 32 pg (25-34); MEAN CORPUSCULAR HGB CONC 34 g/dL (32-36); MEAN CORPUSCULAR VOLUME 93 fL (80-99); MONOCYTES # (AUTO) 0.7 10^3/uL (0.0-1.0); MONOCYTES % (AUTO) 7 % (0-12); NEUTROPHILS # (AUTO) 6.9 10^3/uL (1.8-7.8); NEUTROPHILS % (AUTO) 70 % (42-75); PLATELET COUNT 317 10^3/uL (130-400); WHITE BLOOD COUNT 9.8 10^3/uL (4.3-11.0)
[2021-11-27] MEDS ORDERED: DOCUSATE SODIUM 100 MG (COLACE) CAP PO SCH (09:00)
[2021-11-28] MEDS ORDERED: DOCUSATE SODIUM 100 MG (COLACE) CAP PO SCH (09:00)
[2021-11-28] MEDS ORDERED: IBUPROFEN 800 MG (MOTRIN) TAB PO SCH (12:00)
== END 2021-11-27 08:10 | disposition home or self-care (01) ==
LOC: SDC 07:39
PROVIDERS: ATTEND Obstetrics & Gynecology
DX: N80.9 Endometriosis, unspecified (principal); Z53.8 Procedure and treatment not carried out for other reasons
CPT/HCPCS: 36415; 80306; 85025; 87081

== ENCOUNTER 2021-12-10 10:42 | Day surgery (SDC) | payer MEDICAID ==
[2021-12-10] VITALS (10 sets, daily range): BP systolic 81–122; BP diastolic 46–78
[~2021-12-10] VITALS: Ht 152.4 cm; Wt 56.8 kg
--- NOTE | 2021-12-10 08:34 | Progress Note-Pre Operative ---
Pre-Operative Progress Note H&P Reviewed The H&P was reviewed, patient examined and no changes noted. Date Seen by Provider: Dec 10, 2021 Time Seen by Provider: 12:30 Date H&P Reviewed: Dec 10, 2021 Time H&P Reviewed: 12:30 Pre-Operative Diagnosis: Chronic pelvic pain/history of endometriosis HELEN MONTALVO MD Dec 10, 2021 08:34
--- NOTE | 2021-12-10 08:35 | Progress Note-Post Operative ---
Post-Operative Progess Note Surgeon (s)/Pre Sales Network Engineer (s) Surgeon HELEN MONTALVO MD Pre Sales Network Engineer: [place] Pre-Operative Diagnosis Chronic pelvic pain/history of endometriosis Post-Operative Diagnosis Same with Pelvic adhesive disease and withpathology pending Procedure & Operative Findings Date of Procedure 12/10/21 Procedure Performed/Findings Total laparoscopic hysterectomy with bilateral salpingectomiesAnd extensive adhesiolysis Anesthesia Type General general anesthesia Estimated Blood Loss Estimated blood loss (mL): Minimal Specimens/Packing Specimens Removed Uterus and fallopian tubes HELEN MONTALVO MD Dec 10, 2021 08:35
--- NOTE | 2021-12-10 08:39 | Discharge Inst-Surgical ---
Discharge Inst-Surgical Depart Medication/Instructions New, Converted or Re-Newed RX: Transmitted to Pharmacy Consults/Follow Up Patient Instructions: As directed Orders & Referrals Follow Up Appt: Return to clinic on Tuesday, December 14, 2021 at 9:30 AM for staple removal Call to make follow up appt. for patient in 4 weeks. Activity: Rest for 24 hours, than as tolerated. Wound Care: May remove Band-Aid tomorrow. Replace as desired. Keep incisions clean and dry. Wash daily with soap and water. Prescriptions have been sent electronically to patient's pharmacy from my office for Percocet Motrin and Colace Diet: As tolerated shower or tub bathe as desired. No driving for 24 hours, no alcoholic beverages for 24 hours, and nothing per vagina (no tampons, douching, or intercourse) for 8 weeks. Patient to return to the clinic as soon as possible for: Temperature greater than 101F, Severe Pain, Foul discharge from incision or vagina, Excessive Bleeding (more than a period). Activity Activity as Tolerated: No Diet Discharge Diet: No Restrictions HELEN MONTALVO MD Dec 10, 2021 08:39
[2021-12-10] MEDS ORDERED: oxyCODONE/APAP 5/325MG (PERCOCET 5) TABLET PO PRN (11:15)
[2021-12-10] MEDS ORDERED: ceFAZolin INJECTION 1,000 MG VIAL IV ONE (11:15)
[2021-12-10] MEDS ORDERED: fentaNYL INJ 100 MCG/2 ML AMP IVP PRN (11:15)
[2021-12-10] MEDS ORDERED: D5 LR IV SOLUTION 1,000 ML IV SCH (11:15)
[2021-12-10] MEDS ORDERED: KETOROLAC 30 MG/ML VIAL IVP SCH ×2 (11:15→20:00)
[2021-12-10] MEDS ORDERED: ONDANSETRON 4 MG/2 ML (SDV) Z0FRAN IVP PRN ×2 (11:15→14:00)
[2021-12-10 11:30] LABS: AMPHETAMINE SCREEN, URINE NEGATIVE (NEGATIVE); BARBITURATE SCREEN URINE NEGATIVE (NEGATIVE); BENZODIAZEPINES SCREEN URINE NEGATIVE (NEGATIVE); CANNABINOID SCREEN, URINE NEGATIVE (NEGATIVE); COCAINE SCREEN URINE NEGATIVE (NEGATIVE); METHADONE STAT NEGATIVE (NEGATIVE); OPIATE SCREEN URINE NEGATIVE (NEGATIVE); OXYCODONE STAT NEGATIVE (NEGATIVE); PROPOXYPHENE STAT NEGATIVE (NEGATIVE); TRICYCLIC ANTIDEPRESSANTS SCRE NEGATIVE (NEGATIVE)
[2021-12-10] MEDS: LACTATED RINGERS 1,000 ML IV PRN ×2 (11:47→13:15)
[2021-12-10 11:55] LABS: BASOPHILS % (AUTO) 0 % (0-10); EOSINOPHILS # (AUTO) 0.1 10^3/uL (0.0-0.3); EOSINOPHILS % (AUTO) 2 % (0-10); HEMATOCRIT 42 % (35-52); HEMOGLOBIN 14.4 g/dL (11.5-16.0); LYMPHOCYTES # (AUTO) 1.9 10^3/uL (1.0-4.0); LYMPHOCYTES % (AUTO) 23 % (12-44); MEAN CORPUSCULAR HEMOGLOBIN 32 pg (25-34); MEAN CORPUSCULAR HGB CONC 35 g/dL (32-36); MEAN CORPUSCULAR VOLUME 93 fL (80-99); MEAN PLATELET VOLUME 10.3 fL (9.0-12.2); MONOCYTES # (AUTO) 0.4 10^3/uL (0.0-1.0); MONOCYTES % (AUTO) 5 % (0-12); NEUTROPHILS # (AUTO) 5.6 10^3/uL (1.8-7.8); NEUTROPHILS % (AUTO) 70 % (42-75); PLATELET COUNT 271 10^3/uL (130-400)
[2021-12-10] MEDS ORDERED: MIDAZOLAM 2 MG/2 ML (VERSED) VIAL ONE (11:59)
[2021-12-10] MEDS ORDERED: ONDANSETRON 4 MG/2 ML (SDV) Z0FRAN ONE (11:59)
[2021-12-10] MEDS ORDERED: fentaNYL INJ 100 MCG/2 ML AMP ONE (11:59)
[2021-12-10] MEDS ORDERED: LIDOCAINE PF 2% 5 ML (XYLOCAINE) VIAL ONE (11:59)
[2021-12-10] MEDS ORDERED: proPOfol 200 MG/20 ML (DIPRIVAN) VIAL IV ONE (11:59)
[2021-12-10] MEDS ORDERED: ROCURONIUM 50 MG/5 ML (ZEMURON) VIAL IV ONE (11:59)
[2021-12-10] MEDS ORDERED: GLYCOPYRROLATE 0.2 MG/ML (ROBINUL) 2 ML VIAL ONE (11:59)
[2021-12-10] MEDS ORDERED: NEOSTIGMINE (BLOXIVERZ ) 1 MG/1ML 10 ML VIAL ONE (11:59)
[2021-12-10] MEDS ORDERED: IBUPROFEN 800 MG (MOTRIN) TAB PO SCH (12:00)
[2021-12-10] MEDS ORDERED: LIDOCAINE/EPI 2% 1:200,00 (XYLOCAINE) 20 ML VIAL ONE (12:01)
[2021-12-10] MEDS ORDERED: HYDROmorphone 2 MG/ML VIAL (DILAUDID) ONE ×2 (13:30→14:07)
[2021-12-10] MEDS ORDERED: SEVOFLURANE (ULTANE) 15 ML INHAL SOLN ONE (13:54)
[2021-12-10] MEDS ORDERED: morphine INJ 10 MG/ML 1ML (SYR OR VIAL) IVP ONE (14:00)
[2021-12-10] MEDS ORDERED: HYDROmorphone 2 MG/ML VIAL (DILAUDID) IV ONE (14:00)
--- NOTE | 2021-12-10 14:03 | Anesthesia-General Post-Op ---
General Patient Condition Mental Status/LOC: Same as Preop Cardiovascular: Satisfactory Nausea/Vomiting: Absent Respiratory: Satisfactory Pain: Controlled Complications: Absent Post Op Complications Complications None Follow Up Care/Instructions Patient Instructions None needed. Anesthesia/Patient Condition Patient Condition Patient is doing well in PACU, C/O pain which is to be expected, stable vital signs, no apparent adverse anesthesia problems. No complications reported per nursing. NILA PUENTE DO Dec 10, 2021 14:03
[2021-12-10] MEDS ORDERED: KETOROLAC 30 MG/ML VIAL ONE (14:07)
--- NOTE | 2021-12-10 18:57 | OPERATIVE REPORT ---
DATE OF SERVICE: 12/10/2021 PREOPERATIVE DIAGNOSES: Chronic pelvic pain and history of endometriosis. POSTOPERATIVE DIAGNOSES: Chronic pelvic pain and history of endometriosis with pelvic adhesions. OPERATIVE PROCEDURES: Total laparoscopic hysterectomy with bilateral salpingo-oophorectomy as well as adhesiolysis. OPERATIVE DESCRIPTION: With the patient in the supine position under satisfactory general anesthesia, the patient was repositioned in a dorsal lithotomy position in the [facility] and then prepped and draped in the usual fashion for abdominal and vaginal surgery. Set up was to allow for use of da Eagle assistance. A weighted speculum was placed in the posterior fornix of vagina, cervix exposed and grasped anteriorly with single tooth tenaculum. Uterus was sounded to 12 cm with uterine sound. The cervix was then serially dilated with Malcolm dilators to accommodate a Jennifer II manipulator, which was placed using a 6 mm x 8 cm uterine probe and a 25 mm colpotomy ring. Sutures of #1 Vicryl placed at 3 and 9 o'clock positions of the cervix to affix the uterus to the manipulator. The patient was brought in low dorsal lithotomy position after the tenaculum and speculum were removed and a Rubalcava catheter was placed to dependent drainage. A 12 mm incision was made superior to the umbilicus. Veress needle was placed through that incision into the abdominal cavity. Correct placement was confirmed with water drop test. The abdomen was insufflated with 2.4 liters of carbon dioxide and then the Veress needle was removed and replaced with a 12 mm laparoscopic port. The abdominal wall was transilluminated and 8 mm ports were placed in the right and left lateral quadrants approximately 3 cm above the umbilicus and 8 cm lateral to the umbilicus. All port sites were infiltrated with 1% lidocaine with epinephrine. The patient was placed in a Trendelenburg allowing the bowel spill out of the pelvis. The operative arm of the da Eagle was advanced on the patient and docked and operative instrument placed in the right and left lateral ports and I retired at the console using the vessel sealer on the right and a bipolar fenestrated grasper on the left. The pelvis was first examined. There were some extensive adhesions on the left pelvic brim that were obscuring access to the tube and ovary on the left. The vessel sealer was replaced with a monopolar shear and then very careful sharp and blunt adhesiolysis also employing electrocautery was employed to skeletonize the IP ligament completely and allow access to the tube and ovary and the IP ligament on the left. This was done so as not to have any negative impact on the bowel. Both ureters were readily visible and were peristalsing normally. Laparoscope was rotated. The appendix was surgically absent in that area. The right fallopian tube and ovary were elevated. The IP ligament was clamped, cauterized and divided now with the vessel sealer. That dissection was continued across the mesovarium using the vessel sealer stepwise across to the round ligament, down the broad ligament to the side of the uterus on the cardinal ligament and down onto the cardinal ligament. Same procedure was performed on the left, allowing for eventual removal of both tubes and ovaries with the uterus. Anterior lower uterine segment peritoneum was now divided using the monopolar shear again in place of the vessel sealer. The bladder was carefully dissected down off the lower uterine segment. Colpotomy incision was started at 12 o'clock position onto the colpotomy ring. That incision was continued circumferentially until the entire colpotomy ring was exposed and then the uterus with the tubes and ovaries still attached was extracted through the vagina. There had been an adhesion of the omentum to the abdominal wall just superior to the umbilicus. This had been taken down with the vessel sealer prior to initiating the hysterectomy. There was a redundant vulvar tissue there that was removed, a small piece of adipose mesenteric tissue that was placed in the vagina to extract as well. The vaginal cuff was now closed with a single suture of V-Loc barbed suture starting from the right angle and continuing across the vaginal cuff to the left angle taking care to ensure inclusion of the uterine vessel pedicles bilaterally. The anterior lower uterine segment that was stuck to the anterior lower peritoneum was reapproximated over the vaginal cuff. Sponge and needle counts at this point were correct. All abnormal-appearing tissue including endometriosis implants that had been in the ovarian fossae on the backside of the uterus were removed with the specimen. Hemostasis was complete. Sponge and needle counts were correct. The laparoscopic portion of the procedure was halted. The operative instruments were removed under direct vision as were the ports. The abdomen was evacuated of the insufflating gas in the process of removing the ports. The skin incisions were closed with ira after closing the fascia at the supraumbilical incisions with a single suture of 2-0 Vicryl. Speculum was replaced in the vagina to examine the vaginal cuff, which was completely hemostatic and completely reapproximated. Now with sponge and needle counts correct, hemostasis assured, blood loss minimal, the patient was uneventfully awakened from her general anesthesia and transferred to the recovery room in a stable condition. Job ID: [id number] DocumentID: [id number] Dictated Date: 12/10/2021 13:51:29 Pathology Laboratory Director Date: 12/10/2021 18:56:24 Dictated By: HELEN MONTALVO MD
[2021-12-10] MEDS ORDERED: DOCUSATE SODIUM 100 MG (COLACE) CAP PO SCH (21:00)
[2021-12-11] MEDS ORDERED: DOCUSATE SODIUM 100 MG (COLACE) CAP PO SCH (09:00)
[2021-12-11] MEDS ORDERED: IBUPROFEN 800 MG (MOTRIN) TAB PO SCH (14:00)
== END 2021-12-10 18:39 | disposition home or self-care (01) ==
LOC: SDC 10:42 → 4TH 15:00 → SDC 18:39
PROVIDERS: ATTEND Obstetrics & Gynecology
DX: D25.2 Subserosal leiomyoma of uterus (principal); N83.202 Unspecified ovarian cyst, left side; N83.201 Unspecified ovarian cyst, right side; F17.210 Nicotine dependence, cigarettes, uncomplicated
CPT/HCPCS: 36415; 80306; 84703; 85025; 87081

== ENCOUNTER 2023-03-09 08:49 | Emergency (ER) | payer SELFPAY ==
[~2023-03-09] VITALS: Ht 152.4 cm; Wt 54.4 kg
[2023-03-09 09:46] LABS: BACTERIA,URINE TRACE /HPF; BILIRUBIN,URINE 1+ (NEGATIVE); CLARITY,URINE CLEAR; COLOR,URINE YELLOW; GLUCOSE, URINE (UA) NEGATIVE (NEGATIVE); KETONES,URINE 2+ (NEGATIVE); LEUKOCYTE ESTERASE ,URINE NEGATIVE (NEGATIVE); NITRITE,URINE NEGATIVE (NEGATIVE); PROTEIN,URINE 1+ (NEGATIVE); WBC,URINE 0-2 /HPF
[2023-03-09 09:47] LABS: CALCIUM OXALATE CRYSTALS,UR LARGE /LPF; HYALINE CASTS, URINE RARE /LPF
[2023-03-09 09:53] LABS: AMPHETAMINE SCREEN, URINE POSITIVE (NEGATIVE); BARBITURATE SCREEN URINE NEGATIVE (NEGATIVE); CANNABINOID SCREEN, URINE NEGATIVE (NEGATIVE); COCAINE SCREEN URINE NEGATIVE (NEGATIVE); METHADONE STAT NEGATIVE (NEGATIVE); OPIATE SCREEN URINE POSITIVE (NEGATIVE); OXYCODONE STAT NEGATIVE (NEGATIVE); PROPOXYPHENE STAT NEGATIVE (NEGATIVE); TRICYCLIC ANTIDEPRESSANTS SCRE NEGATIVE (NEGATIVE)
[2023-03-09 10:01] LABS: BASOPHILS % (AUTO) 0 % (0-10); EOSINOPHILS # (AUTO) 0.1 10^3/uL (0.0-0.3); EOSINOPHILS % (AUTO) 1 % (0-10); HEMATOCRIT 40 % (35-52); HEMOGLOBIN 14.2 g/dL (11.5-16.0); LYMPHOCYTES # (AUTO) 2.3 10^3/uL (1.0-4.0); LYMPHOCYTES % (AUTO) 25 % (12-44); MEAN CORPUSCULAR HEMOGLOBIN 32 pg (25-34); MEAN CORPUSCULAR HGB CONC 35 g/dL (32-36); MEAN CORPUSCULAR VOLUME 91 fL (80-99); MEAN PLATELET VOLUME 10.3 fL (9.0-12.2); MONOCYTES # (AUTO) 0.8 10^3/uL (0.0-1.0); MONOCYTES % (AUTO) 8 % (0-12); NEUTROPHILS % (AUTO) 65 % (42-75); PLATELET COUNT 327 10^3/uL (130-400); WHITE BLOOD COUNT 9.3 10^3/uL (4.3-11.0)
[2023-03-09 10:09] LABS: ALBUMIN 4.7 GM/DL (3.2-4.5); CHLORIDE 109 MMOL/L (98-107); POTASSIUM 3.6 MMOL/L (3.6-5.0); SODIUM 142 MMOL/L (135-145)
[2023-03-09 10:10] LABS: CALCIUM 10.3 MG/DL (8.5-10.1)
[2023-03-09 10:12] LABS: GLUCOSE 92 MG/DL (70-105); TOTAL PROTEIN 7.2 GM/DL (6.4-8.2)
[2023-03-09 10:13] LABS: CARBON DIOXIDE 19 MMOL/L (21-32)
[2023-03-09 10:15] LABS: ALKALINE PHOSPHATASE 53 U/L (40-136); CREATININE SERUM 0.83 MG/DL (0.60-1.30); GFR ESTIMATED 94
[2023-03-09 10:16] LABS: ACETAMINOPHEN < 10 UG/ML (10-30)
[2023-03-09 10:17] LABS: BUN/CREATININE RATIO 19
[2023-03-09 10:18] LABS: SALICYLATE < 5.0 MG/DL (5.0-20.0)
[2023-03-09 10:19] LABS: ALANINE AMINOTRANSFERASE 17 U/L (0-55)
[2023-03-09 10:40] LABS: TSH (THYROID ANALYZER) 0.78 UIU/ML (0.35-4.94)
[2023-03-09] MEDS ORDERED: ALPRAZolam 0.25 MG TABLET PO ONE (11:00)
--- NOTE | 2023-03-09 11:00 | ED Psychosocial ---
General Chief Complaint: Psych/Social Disorder Stated Complaint: MENTAL EVALUATION Nursing Triage Note: PT AMB TO RM 8 WITH [facility]. [facility] WAS CONTACTED BY PD FOR SUICIAL IDEATION. STATES PT MADE SUICIDAL COMMENTS TO FAMILY AND PD WAS CONTACTED. PT USED IV METH LAST NIGHT. Source: patient, other ([facility]) Exam Limitations: no limitations History of Present Illness Date Seen by Provider: Mar 09, 2023 Time Seen by Provider: 08:57 Initial Comments This 37-year-old woman is brought to the emergency room by staff at [facility] for reasons of suicidal ideation. Patient gives a history of having an argument with her boyfriend at his house this morning regarding custody of their children. The boyfriend has been keeping the children away from her. She slept in a van in his backyard last night. When they were arguing this morning, the boyfriend contacted police. Marybeth made comments to her boyfriend and police about wanting to kill herself. She was taken to the police station. [facility] then became involved and brought her to the emergency room for medical clearance and possible placement. She does admit to wanting to hurt herself when thinking about being without her children. She does not have a plan at this time. She reports having 2 admissions as a teenager for suicidal ideation and overdose attempts. She also tried to hang herself once in her 20s. She also complains of chronic left hip pain for which she takes gabapentin and tramadol. She also has substance abuse history and most recently used methamphetamine yesterday. She reports using methamphetamine once or twice a month. She uses it by both injection and inhalation. She rarely drinks alcohol. Allergies and Home Medications Allergies Coded Allergies: No Known Drug Allergies (Unverified , 12/10/21) Patient Home Medication List Home Medication List Reviewed: Yes Fluoxetine HCl (Prozac) 20 Mg Capsule, 20 MG PO DAILY, (Reported) Entered as Reported by: ZOFIA SHARMA on 11/24/21 104 Olanzapine (Olanzapine) 10 Mg Tablet, 25 MG PO HS, (Reported) Entered as Reported by: ZOFIA SHARMA on 11/24/21 104 Trazodone HCl (Trazodone HCl) 50 Mg Tablet, 50 MG PO HS, (Reported) Entered as Reported by: ZOFIA SHARMA on 11/24/21 104 Review of Systems Constitutional: no symptoms reported EENTM: no symptoms reported Respiratory: no symptoms reported Cardiovascular: no symptoms reported Gastrointestinal: no symptoms reported Genitourinary: no symptoms reported : No Musculoskeletal: see HPI Skin: no symptoms reported Psychiatric/Neurological: See HPI Past Gyahvfl-Grcrge-Qauzwc Hx Patient Social History Tobacco Use?: Yes Tobacco type used: Cigarettes Smoking Status: Current Everyday Smoker Use of E-Cig and/or Vaping dev: No Substance use?: Yes Substance type: Methamphetamine (Inhaled and IV) Substance frequency: Several times a month Alcohol Use?: Yes Alcohol Frequency: Once in a while Pt feels they are or have been: No Immunizations Up To Date Tetanus Booster (TDap): Unknown First/Initial COVID19 Vaccinat: 10/08/20 Second COVID19 Vaccination Ed: 11/07/20 Third COVID19 Vaccination Date: JULY 2021 Seasonal Allergies Seasonal Allergies: No Past Medical History Surgeries: Yes (LAPAROSCOPY FOR OVARIAN CYSTS, ENODMETRIOSIS; RIGHT KNEE SCOPE, TUBES TIED) Hysterectomy, Orthopedic, Tubal Ligation Respiratory: No Currently Using CPAP: No Currently Using BIPAP: No Cardiac: No Syncope Neurological: No : No Reproductive Disorders: Yes Female Reproductive Disorders: Endometriosis, Ovarian Cyst 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 Cancer Physical Exam Vital Signs - First Documented 03/09/23 08:58 Pulse 94 Resp 16 B/P (MAP) 117/75 (89) Pulse Ox 94 O2 Delivery Room Air Capillary Refill : Less Than 3 Seconds Height, Weight, BMI Height: 5'0.00" Weight: 145lbs. 0.0oz. 65.796976bc; 23.00 BMI Method:Stated General Appearance: WD/WN, mild distress (Emotional) HEENT: PERRL/EOMI, normal ENT inspection, other (Mucous membranes moist) Neck: normal inspection Respiratory: lungs clear, normal breath sounds, no respiratory distress Cardiovascular: regular rate, rhythm, no edema, no murmur Gastrointestinal: non tender, soft Extremities: normal inspection, no pedal edema Neurologic/Psychiatric: air turning machine feeder II-XII nml as tested, no motor/sensory deficits, alert, oriented x 3, other (Mildly emotionally distressed. Subtle dystonic movements. Anxious and at times tearful) Appearance/Memory: appropriate appearance, appropriate insight Behavior/Eye Contact: cooperative, good eye contact Thoughts/Hallucinations: no apparent hallucination Skin: normal color, warm/dry Progress/Results/Core Measures Results/Orders Lab Results My Orders Orders - GARY PIPER MD Alprazolam Tablet (Alprazolam Tablet) (03/09/23 11:00) Tramadol Tablet (Ultram Tablet) (03/09/23 11:00) Medications Given in ED Vital Signs/I&O Blood Pressure Mean: 89 Progress Progress Note #1: Time: 12:24 Progress Note Report was received from nursing staff and [facility] staff at 0857 and orders were placed accordingly. Labs have since been reviewed and interpreted by me in their entirety. CBC, CMP, and thyroid analyzer were clinically unremarkable. Toxicology screen was positive for amphetamines, benzodiazepines, and opiates. Urinalysis was notable for high specific gravity, crystals, and 2+ ketones. Patient was encouraged to aggressively hydrate orally. She was given Ultram for her hip pain and Xanax for anxiety. COVID screen was negative. [facility] is working on possible placement for dual diagnosis treatment. Progress Note #2: Time: 13:30 Progress Note [facility] screener developed a safety plan with patient. She was discharged after safety plan was reviewed and signed. Initial ECG Impression Date: Mar 09, 2023 Initial ECG Impression Time: 09:12 Initial ECG Rate: 93 Initial ECG Rhythm: Normal Sinus Initial ECG Intervals: Normal Initial ECG Impression: Normal Comment Normal sinus rhythm with no ST elevation or depression. No abnormal intervals or axis deviation. Departure Impression Primary Impression: Suicidal ideation Additional Impressions: Methamphetamine abuse Psychosocial stressors Chronic hip pain Qualified Codes: M25.552 - Pain in left hip; G89.29 - Other chronic pain Disposition: 01 HOME, SELF-CARE Condition: Improved Departure-Patient Inst. Decision time for Depature: 13:30 Referrals: NO,LOCAL PHYSICIAN (PCP/Family) Primary Care Physician Patient Instructions: ALCOHOL AND SUBSTANCE ABUSE, Suicide Prevention Add. Discharge Instructions: Follow the safety plan provided by [facility]. Follow-up with a primary care provider soon as possible for general health needs. Seek assistance from a substance abuse treatment program to help you quit methamphetamine use. Some resources available within the community include the [facility] at [phone] or [facility] at [phone]. If you have escalating mental health needs or a mental health crisis, please call the crisis line provided, return to the ER, or call 911. All discharge instructions reviewed with patient and/or family. Voiced understanding. Copy Copies To 1: AGA SYLVESTER JOSHUA T MD Mar 09, 2023 11:00
[2023-03-09 13:41] VITALS: BP 119/81
== END 2023-03-09 13:40 | disposition home or self-care (01) ==
LOC: EDUNIT# 08:49 → ER 08:51
DX: R45.851 Suicidal ideations (principal); F15.10 Other stimulant abuse, uncomplicated; M25.552 Pain in left hip; G89.29 Other chronic pain; F17.210 Nicotine dependence, cigarettes, uncomplicated; Z65.9 Problem related to unspecified psychosocial circumstances; Z20.822 Contact with and (suspected) exposure to COVID-19
CPT/HCPCS: 80053; 80306; 81000; 84443; 84703; 85025; 87636; 93005; 99283; G0480 ×3; 36415; 80320; 80329